=== PATIENT | female | born 1950 | race American Indian/Alaskan Native ===

== ENCOUNTER 2016-08-14 15:34 | Emergency (ER) | payer MEDICARE ==
[2016-08-14 15:34] VITALS: BMI 31.1
[2016-08-14 15:41] VITALS: TEMP 98.4
[2016-08-14] MEDS ORDERED: Morphine 4 MG/ML VIAL ONE (16:16)
--- NOTE | 2016-08-14 17:08 | RAD ---
PROCEDURE: Radiographs of the left clavicle. HISTORY: left clavicle pain r/o fx COMPARISON: None. FINDINGS: LEFT CLAVICLE: Acute fracture at the junction of the middle and distal thirds. The fracture is without appreciable distraction or impaction. This appears in a row area of mottling of the clavicle suggests the possibility of a pathologic fracture. JOINTS: Left acromioclavicular and glenohumeral joints are grossly unremarkable. SOFT TISSUES: Grossly unremarkable. OTHER FINDINGS: None. IMPRESSION: Acute fracture left clavicle. This appears to be a pathologic fracture.
--- NOTE | 2016-08-14 17:12 | C.PDOC ---
History Of Present Illness 66-year-old female with PMHx of Hypertension and Multiple Myeloma, presents to the emergency department with for evaluation of left shoulder/clavicular pain, severe since last night. Patient states she fell two weeks ago, and developed pain in the area. Today she went for chemotherapy with Dr Morley, was given Tramadol for pain. She denies new falls/injuries, chest pain, SOB, fever , nausea/vomiting, sensory changes, rash. Time Seen by Provider: 08/14/16 15:57 Chief Complaint (Nursing): Upper Extremity Problem/Injury History Per: Patient History/Exam Limitations: no limitations Onset/Duration Of Symptoms: Days Current Symptoms Are (Timing): Still Present Quality: "Pain" Severity: Moderate Past Medical History Reviewed: Historical Data, Nursing Documentation, Vital Signs Vital Signs: Last Vital Signs Temp 98.4 F 08/14/16 15:40 Pulse 80 08/14/16 17:26 Resp 18 08/14/16 17:26 BP 164/97 H 08/14/16 17:26 Pulse Ox 98 08/14/16 19:04 - Medical History PMH: Bronchitis, HTN, Malignancy (multiple myeloma) - [facility] Procedures BREAST DX PROCEDURE NEC (08/19/13) DX ULTRASOUND-THORAX NEC (08/19/13) NON-INVASIVE MECHANICAL VENTILATION (10/05/14) PERCUTAN NEEDLE BIOPSY OF BREAST (08/19/13) Family History: States: No Known Family Hx - Social History Hx Tobacco Use: No Hx Alcohol Use: No Hx Substance Use: No - Immunization History Hx Tetanus Toxoid Vaccination: No Hx Influenza Vaccination: No Hx Pneumococcal Vaccination: No Review Of Systems Except As Marked, All Systems Reviewed And Found Negative. Constitutional: Negative for: Fever, Chills Cardiovascular: Negative for: Chest Pain, Palpitations Respiratory: Negative for: Cough, Shortness of Breath Gastrointestinal: Negative for: Nausea, Vomiting, Abdominal Pain, Diarrhea Musculoskeletal: Positive for: Other (Left clavicular pain). Negative for: Back Pain Neurological: Negative for: Weakness, Numbness, Headache, Dizziness Physical Exam - Physical Exam Appears: Non-toxic, Other (in moderate pain) Skin: Warm, Dry, No Rash Head: Atraumatic, Normacephalic Eye(s): bilateral: Normal Inspection Oral Mucosa: Moist Neck: Normal, Normal ROM Cardiovascular: Rhythm Regular Respiratory: Normal Breath Sounds, No Accessory Muscle Use, No Rales, No Rhonchi , No Wheezing Extremity: Capillary Refill (< 2 sec all digits ), No Deformity, Other (severe left clavicular TTP and mild swelling noted, no crepitus, left shoulder without swelling or deformity) Extremity: Left: Limited ROM To Joint (left shoulder ROM limited due to pain) Pulses: Left Radial: Normal, Right Radial: Normal Neurological/Psych: Oriented x3, Normal Motor, Normal Sensation Gait: Steady ED Course And Treatment O2 Sat by Pulse Oximetry: 98 (RA) Pulse Ox Interpretation: Normal - Other Rad XR L CLAVICLE X-Ray: Viewed By Me, Read By Radiologist Interpretation: Accession No. : [id number]. Patient Name / ID : NIKOLAS Ramirez / [id number]. Exam Date : 08/14/2016 16:12:38 ( Approved ). Study Comment : Sex / Age : F / 66Y. Creator : Kaden Jarvis MD. Dictator : Kaden Jarvis MD. Envelope Stuffer : Club Car Attendant : Kaden Jarvis MD. Approver2 : Report Date : 08/14/2016 17:06:43. My Comment : . PROCEDURE: Radiographs of the left clavicle. HISTORY: left clavicle pain r/o fx. COMPARISON: None. FINDINGS: LEFT CLAVICLE: Acute fracture at the junction of the middle and distal thirds. The fracture is without appreciable distraction or impaction. This appears in a row area of mottling of the clavicle suggests the possibility of a pathologic fracture. JOINTS: Left acromioclavicular and glenohumeral joints are grossly unremarkable. SOFT TISSUES: Grossly unremarkable. OTHER FINDINGS: None. IMPRESSION: Acute fracture left clavicle. This appears to be a pathologic fracture. XR L SHOULDER X-Ray: Viewed By Me, Read By Radiologist Interpretation: Accession No. : [id number]. Patient Name / ID : NIKOLAS Ramirez / [id number]. Exam Date : 08/14/2016 16:12:55 ( Approved ). Study Comment : Sex / Age : F / 66Y. Creator : Marnie Jesus MD. Dictator : Marnie Jesus MD. Envelope Stuffer : Club Car Attendant : Marnie Jesus MD. Approver2 : Report Date : 08/14/2016 17:18:04. My Comment : . PROCEDURE: Radiographs of the Left Shoulder. HISTORY: left shoulder pain r/o fx. COMPARISON: Left clavicle radiograph performed 08/14/16. FINDINGS : BONES: No acute displaced fracture. Left mid clavicle fracture deformity in a region of mottle lucency. The underlying ribs appear intact. JOINTS: No acute dislocation. SOFT TISSUES: Soft tissues appear unremarkable. No evidence of radiopaque foreign body. IMPRESSION: Left clavicle fracture. Question possibility of pathologic fracture. Please refer to left clavicular radiographs performed concurrently for more detailed discussion. Progress Note: Xrays ordered and reviewed. Patient given Morphine IM. Reevaluation Time: 17:20 Reassessment Condition: Improved (Patient still having pain, PO Vicodin ordered. Xrays shows left calvicular nondisplaced fx (likely pathological). Patient placed in shoulder sling, and given Rx for pain medication. She was instructed to follow up with orthopedics within 1 week, and she understands she should return to ED if symptoms worsen.) Disposition Counseled Patient/Family Regarding: Studies Performed, Diagnosis, Need For Followup, Rx Given - Disposition Referrals: Ced Doshi MD [Staff Provider] - [facility] [Outside] Disposition: HOME/ ROUTINE Disposition Time: 17:25 Condition: STABLE Additional Instructions: FOLLOW UP WITH ORTHOPEDICS WITHIN 1 WEEK USE PAIN MEDICATION NEEDED RETURN TO ER IF SYMPTOMS WORSEN Prescriptions: Hydrocodone/Acetaminophen [Hydrocodon-Acetaminophen 5-325] 1 each PO Q6 PRN #15 tablet PRN Reason: Pain, Moderate (4-7) Instructions: Clavicle Fracture (ED) Print Language: SAO TOMEAN - POA Present On Arrival: None - Clinical Impression Clinical Impression: Fracture of clavicle - Scribe Statement The provider has reviewed the documentation as recorded by the Scribe Gerard Doshi All medical record entries made by the Aubreyibe were at my direction and personally dictated by me. I have reviewed the chart and agree that the record accurately reflects my personal performance of the history, physical exam, medical decision making, and the department course for this patient. I have also personally directed, reviewed, and agree with the discharge instructions and disposition.
[2016-08-14] MEDS ORDERED: Hydrocodone/Acetaminophen 5 mg /300 mg Tab PO ONE (17:20)
--- NOTE | 2016-08-14 17:20 | RAD ---
PROCEDURE: Radiographs of the Left Shoulder HISTORY: left shoulder pain r/o fx COMPARISON: Left clavicle radiograph performed 08/14/16 FINDINGS: BONES: No acute displaced fracture. Left mid clavicle fracture deformity in a region of mottle lucency. The underlying ribs appear intact. JOINTS: No acute dislocation. SOFT TISSUES: Soft tissues appear unremarkable. No evidence of radiopaque foreign body. IMPRESSION: Left clavicle fracture. Question possibility of pathologic fracture. Please refer to left clavicular radiographs performed concurrently for more detailed discussion.
[2016-08-14] MEDS ORDERED: Hydrocodone/Acetaminophen 5 mg /300 mg Tab PO STA (17:25)
[2016-08-14 17:27] VITALS: BP 164/97; PULSE 80; RESP 18
[2016-08-14 19:00] VITALS: O2SAT 98
== END 2016-08-14 17:28 | disposition home or self-care (01) ==
LOC: C.ER 15:34
DX: S42.002A Fracture of unspecified part of left clavicle, initial encounter for closed fracture (principal); W19.XXXA Unspecified fall, initial encounter; Y92.9 Unspecified place or not applicable; C90.00 Multiple myeloma not having achieved remission
CPT/HCPCS: 73000; 73030; 96372; 99284; J2270

== ENCOUNTER 2017-08-11 10:48 | Emergency (ER) | payer MEDICARE, OTHER ==
[2017-08-11 10:48] VITALS: BMI 31.1
[2017-08-11 10:54] VITALS: RESP 16
[2017-08-11] MEDS ORDERED: Lidocaine 5% Patch TD STA (11:51)
[2017-08-11] MEDS ORDERED: Lidocaine 5% Patch TD ONE (12:05)
--- NOTE | 2017-08-11 12:41 | C.PDOC ---
History Of Present Illness 67-year-old female, PMHx includes multiple myeloma (chemo one week ago), presents to the emergency department with complaints of right lower back pain, developed after lifting heavy pans at work. States at 09:30 this morning, while she was working, she developed an immediate sharp, throbbing pain, and was sent home. Patient took Motrin with minimal relief. Patient states she tried to make an appointment with PMD, but was unable to f.u and decided to come to ED due to severity of pain. Denies nausea/vomiting, numbness/weakness, bladder/bowel incontinence, or any other associated symptoms. No other complaints at this time. PMD Katherine Lugo MD. Time Seen by Provider: 08/11/17 11:44 Chief Complaint (Nursing): Back Pain History Per: Patient History/Exam Limitations: no limitations Past Medical History Reviewed: Historical Data, Nursing Documentation, Vital Signs Vital Signs: Last Vital Signs Temp 98.4 F 08/11/17 14:21 Pulse 78 08/11/17 14:21 Resp 16 08/11/17 14:21 BP 152/81 H 08/11/17 14:21 Pulse Ox 98 08/11/17 14:23 - Medical History PMH: Bronchitis, HTN, Malignancy (multiple myeloma) Denies: Chronic Kidney Disease - [facility] Procedures BREAST DX PROCEDURE NEC (08/19/13) DX ULTRASOUND-THORAX NEC (08/19/13) NON-INVASIVE MECHANICAL VENTILATION (10/05/14) PERCUTAN NEEDLE BIOPSY OF BREAST (08/19/13) Family History: States: No Known Family Hx - Social History Hx Tobacco Use: No Hx Alcohol Use: No Hx Substance Use: No - Immunization History Hx Tetanus Toxoid Vaccination: No Hx Influenza Vaccination: No Hx Pneumococcal Vaccination: No Review Of Systems Cardiovascular: Negative for: Chest Pain Respiratory: Negative for: Shortness of Breath Genitourinary: Negative for: Dysuria, Incontinence Musculoskeletal: Positive for: Back Pain Skin: Negative for: Rash Neurological: Negative for: Weakness, Numbness, Dizziness Physical Exam - Physical Exam Appears: Non-toxic, No Acute Distress Skin: Normal Color, Warm, Dry, No Rash Head: Atraumatic, Normacephalic Eye(s): bilateral: Normal Inspection, EOMI Nose: Normal Oral Mucosa: Moist Lips: Normal Appearing Neck: Normal ROM Chest: Symmetrical Cardiovascular: Rhythm Regular, No Murmur Respiratory: Normal Breath Sounds, No Accessory Muscle Use Gastrointestinal/Abdominal: Soft, No Tenderness, No Guarding, No Rebound Back: Decreased ROM (due to pain), Paraspinal Tenderness (diffuse lumbar), Other (no swelling or bulging) Extremity: Normal ROM, No Deformity, No Swelling Neurological/Psych: Oriented x3, Normal Speech Gait: Steady ED Course And Treatment O2 Sat by Pulse Oximetry: 98 (RA) Pulse Ox Interpretation: Normal Medical Decision Making Medical Decision Making: Impression: Back pain Plan: * Morphine * Lidoderm * XR Spine Xray shows No acute fractures. Minor degenerative spondylosis as described Patient re-evaluated and reports pain is improving. She asks to contact her PMD [id number] Morley will see patient in her office in 2 days. Patient is ambulatory without discomfort and ready for discharge Disposition Counseled Patient/Family Regarding: Diagnosis, Need For Followup - Disposition Referrals: Lashay Morley MD [Staff Provider] - Disposition: HOME/ ROUTINE Disposition Time: 14:10 Condition: IMPROVED Additional Instructions: Please follow up with your doctor in 1-2 days for further evaluation. Take Tylenol or ibuprofen for pain Follow up with your primary medical doctor or clinic in 2-5 days for further evaluation Return to the emergency department at any time if symptoms persist or worsen. Instructions: Lumbar Muscle Strain (DC) Forms: [facility] (Yakut) - POA Present On Arrival: None - Clinical Impression Clinical Impression: Low back strain - Scribe Statement The provider has reviewed the documentation as recorded by the Scribe (Gerard Doshi) All medical record entries made by the Scribe were at my direction and personally dictated by me. I have reviewed the chart and agree that the record accurately reflects my personal performance of the history, physical exam, medical decision making, and the department course for this patient. I have also personally directed, reviewed, and agree with the discharge instructions and disposition.
--- NOTE | 2017-08-11 13:44 | RAD ---
PROCEDURE: Radiographs of the Lumbar Spine. HISTORY: low back pain s.p heavy lifting COMPARISON: No prior. FINDINGS: BONES: No acute compression fractures no retropulsed fragments the vertebral bodies exhibit normal stature. Bodies facets normally aligned. DISC SPACES: Disc space heights relatively maintained. Small marginal anterior osteophyte formation seen at several levels. Facets appear slightly hypertrophic L5-S1 through the L2-L3 levels somewhat decreasing order of severity OTHER FINDINGS: Note made of small ring-like calcific density within the right parasagittal upper/mid abdomen subjacent to the right L1 transverse process. Focus is of uncertain etiology the could represent a vascular calcification or possibly a renal calcification. IMPRESSION: No acute fractures. Minor degenerative spondylosis as described
[2017-08-11 14:22] VITALS: BP 152/81; PULSE 78; TEMP 98.4
[2017-08-11 14:23] VITALS: O2SAT 98
== END 2017-08-11 14:36 | disposition home or self-care (01) ==
LOC: C.ER 10:48
DX: S39.012A Strain of muscle, fascia and tendon of lower back, initial encounter (principal); X50.0XXA Overexertion from strenuous movement or load, initial encounter; Y92.89 Other specified places as the place of occurrence of the external cause; Y99.8 Other external cause status
CPT/HCPCS: 72100; 96372; 99283; J2270

== ENCOUNTER 2018-07-24 09:50 | Outpatient (CLI) | payer MEDICARE, OTHER | END 2018-07-24 09:51 | disposition home or self-care (01) | LOC: C.RADH 09:50 | DX: C90.00 Multiple myeloma not having achieved remission (principal); S72.012A Unspecified intracapsular fracture of left femur, initial encounter for closed fracture ==

== ENCOUNTER 2018-08-25 13:35 | Inpatient (IN) | payer MEDICARE, OTHER ==
[2018-08-25 13:35] VITALS: BMI 31.1
--- NOTE | 2018-08-25 14:26 | C.PDOC ---
History Of Present Illness 68 year old female with PMHx of Multiple Myeloma presents to the ED for evaluation of lesion to the right forearm ongoing for 2 weeks with associated swelling and erythema. Reports she was seen by Oncologist today and was sent to the ED for further evaluation. Denies any fever or chills. Time Seen by Provider: 08/25/18 14:10 Chief Complaint (Nursing): Abnormal Skin Integrity History Per: Patient History/Exam Limitations: no limitations Onset/Duration Of Symptoms: Days Current Symptoms Are (Timing): Still Present Location Of Injury: Right: Forearm (lesion ) Quality Of Symptoms: Swollen, Other (erythema ) Past Medical History Reviewed: Historical Data, Nursing Documentation, Vital Signs Vital Signs: Last Vital Signs Temp 99.6 F 08/25/18 13:55 Pulse 85 08/25/18 13:55 Resp 20 08/25/18 13:55 BP 153/86 H 08/25/18 13:55 Pulse Ox 96 08/25/18 13:55 Primary Care Provider: Nora Kaplan - Medical History PMH: Bronchitis, HTN, Malignancy (multiple myeloma) Denies: Chronic Kidney Disease Other Surgeries: Hysterectomy - [facility] Procedures BREAST DX PROCEDURE NEC (08/19/13) DX ULTRASOUND-THORAX NEC (08/19/13) NON-INVASIVE MECHANICAL VENTILATION (10/05/14) PERCUTAN NEEDLE BIOPSY OF BREAST (08/19/13) Family History: States: No Known Family Hx - Social History Hx Tobacco Use: No Hx Alcohol Use: No Hx Substance Use: No - Immunization History Hx Tetanus Toxoid Vaccination: No Hx Influenza Vaccination: No Hx Pneumococcal Vaccination: No Review Of Systems Except As Marked, All Systems Reviewed And Found Negative. Constitutional: Negative for: Fever, Chills Skin: Positive for: Lesions (right forearm ) Physical Exam - Physical Exam Appears: Non-toxic, No Acute Distress Skin: Warm, Dry, Other (3cm tender mass lesion to right forearm with necrotic center and surrounding cellulitis ulcer ) Head: Normacephalic Eye(s): bilateral: Normal Inspection, PERRL, EOMI Nose: Normal Oral Mucosa: Moist Neck: Supple Cardiovascular: Rhythm Regular Respiratory: Normal Breath Sounds, No Rales, No Rhonchi, No Wheezing Gastrointestinal/Abdominal: Soft, No Tenderness Extremity: Normal ROM Pulses: Left Radial: Normal, Right Radial: Normal Neurological/Psych: Oriented x3, Normal Speech Gait: Steady ED Course And Treatment - Laboratory Results Result Diagrams: 08/25/18 15:12 08/25/18 15:12 O2 Sat by Pulse Oximetry: 96 (RA) Pulse Ox Interpretation: Normal - Other Rad XR right forearm X-Ray: Viewed By Me, Read By Radiologist Interpretation: Accession No. : [id number]. Patient Name / ID : NIKOLAS FERRER / [id number]. Exam Date : 08/25/2018 14:33:08 ( Approved ). Study Comment : Sex / Age : F / 68Y. Creator : Leila Cardenas. Dictator : Leila Cardenas. Compressor House Operator : Shot Polisher And Inspector : Leila Cardenas. Approver2 : Report Date : 08/25/2018 15:45:39. My Comment : . PROCEDURE: Radiographs of the Right Forearm. HISTORY: right forearm ulcer. COMPARISON: None available. TECHNIQUE: Frontal and lateral views obtained. 2 views obtained. FINDINGS: BONES: No fracture or destructive lesion. No periosteal reaction seen. No cortical destruction noted. JOINT SPACES: Unremarkable. OTHER FINDINGS: Extensive reticulated subcutaneous edema dorsal aspect of distal right forearm. In addition superficial hyperdensity and soft tissue like concavity radiolucency compatible with the clinical history of an also here at least 1.6 mm in length is noted. No gas-forming cellulitis seen. IMPRESSION: Soft tissue reticulated edema compatible with lymphedema/possible venous stasis and/or cellulitis. With the superficial ulcer as above. No deeper radiographic evidence of osteomyelitis. No gas-forming cellulitis noted. - CT Scan/US CT RUE Other Rad Studies (CT/US): Read By Radiologist, Radiology Report Reviewed CT/US Interpretation: Accession No. : [id number]. Patient Name / ID : NIKOLAS Ramirez / [id number]. Exam Date : 08/25/2018 16:22:37 ( Approved ). Study Comment : Sex / Age : F / 68Y. Creator : Arlin Herrmann. Dictator : Marnie Jesus MD. Compressor House Operator : Shot Polisher And Inspector : Marnie Jesus MD. Approver2 : Report Date : 08/25/2018 16:38:25. My Comment : . Date of service: 08/25/2018. Indication: right forearm necrotic mass. Right upper extremity/elbow CT with IV contrast. IV contrast: 100 mL Visipaque 320 IV. Radiation dose: 216.[address] exam was performed using 1 or more of the following dose reduction techniques: Automated exposure control, adjustment of the MAA and/or kV according to patient size, and/or use of iterative reconstruction technique. Comparison: Right forearm radiographs performed 08/25/18. Findings: Extensive subcutaneous edema/cellulitis. There is a 1.9 x 2.4 cm focal collection with peripheral enhancement noted within the superficial soft tissues at the level of the distal humerus posterior soft tissues; appearance favored to represent abscess. No acute fracture. No dislocation. No evidence of retained radiopaque foreign body. Impression: Extensive subcutaneous edema/cellulitis. There is a 1.9 x 2.4 cm focal collection with peripheral enhancement noted within the superficial soft tissues at the level of the distal humerus posterior soft tissues; appearance favored to represent abscess. Osseous demineralization. No acute fracture or dislocation. Medical Decision Making Medical Decision Making: ro abcses scellulitis. Plan - CT RUE - Bloodwork - XR RUE - Sosyn IVPB - Vancomycin IVPB case discussed with dr cowart . will admit. ct pending. Disposition - Disposition Disposition: HOSPITALIZED Disposition Time: 18:00 Condition: STABLE - Clinical Impression Clinical Impression: Cellulitis, Abscess - PA / RAILROAD SWITCHMAN / Resident Statement MD/DO has reviewed & agrees with the documentation as recorded. - Scribe Statement The provider has reviewed the documentation as recorded by the Scribe Pastora Dumas All medical record entries made by the Scribe were at my direction and personally dictated by me. I have reviewed the chart and agree that the record accurately reflects my personal performance of the history, physical exam, medical decision making, and the department course for this patient. I have also personally directed, reviewed, and agree with the discharge instructions and disposition. Decision To Admit - Pt Status Changed To: Hospital Disposition Of: Inpatient - Admit Certification Admit to Inpatient:: After my assessment, the patient will require hospitalization for at least two midnights. This is because of the severity of symptoms shown, intensity of services needed, and/or the medical risk in this patient being treated as an outpatient. - InPatient: Physician Admission Certification: I certify that this patient requires 2 or more midnights of care for the following reason:: needs OR - . Bed Request Type: Regular Admitting Physician: Nora Kaplan Patient Diagnosis: Cellulitis, Abscess
[2018-08-25] MEDS ORDERED: Piperacillin/Tazobact 3.375 gm 100 ML IVPB STA (14:30)
[2018-08-25] MEDS ORDERED: Vancomycin 1 GM 1 GM/250 ML BAG IVPB ONE (15:16)
[2018-08-25] MEDS ORDERED: Piperacillin/Tazobact 3.375 gm 100 ML IVPB ONE (15:16)
[2018-08-25 15:23] LABS: BASO % 0.6 % (0.0-2.0); EOS % 0.9 % (0.0-4.0); HEMOGLOBIN 10.5 g/dL (11.0-16.0); LYMPH # 1.4 K/uL (1.0-4.3); LYMPH % 32.3 % (20.0-40.0); MEAN CELL VOLUME 89.2 fL (81.0-99.0); MEAN CORPUSCULAR HEMOGLOBIN 28.3 pg (27.0-31.0); MEAN CORPUSCULAR HGB CONC 31.7 g/dL (33.0-37.0); MEAN PLATELET VOLUME 9.2 fL (7.2-11.7); MONO # 0.4 K/uL (0.0-0.8); MONO % 9.6 % (0.0-10.0); NEUT # 2.4 K/uL (1.8-7.0); NEUT % 56.6 % (50.0-75.0); NRBC % 0.6 % (0.0-2.0); RBC 3.73 Mil/uL (3.80-5.20)
[2018-08-25 15:25] LABS: WHITE BLOOD COUNT 4.3 K/uL (4.8-10.8)
[2018-08-25 15:26] LABS: INR 1.2; PARTIAL THROMBOPLASTIN TIME 33.3 SECONDS (21-34); PROTHROMBIN TIME 13.3 SECONDS (9.7-12.2)
[2018-08-25 15:30] LABS: ALB/GLOB RATIO 1.3 (1.0-2.1); ALBUMIN 3.9 g/dL (3.5-5.0); ALT/SGPT 21 U/L (9-52); AST/SGOT 16 U/L (14-36); BLOOD UREA NITROGEN 13 mg/dL (7-17); CALCIUM 8.5 mg/dl (8.6-10.4); GFR NON-AFRICAN AMERICAN > 60
--- NOTE | 2018-08-25 15:48 | RAD ---
PROCEDURE: Radiographs of the Right Forearm HISTORY: right forearm ulcer COMPARISON: None available. TECHNIQUE: Frontal and lateral views obtained. 2 views obtained. FINDINGS: BONES: No fracture or destructive lesion. No periosteal reaction seen. No cortical destruction noted. JOINT SPACES: Unremarkable. OTHER FINDINGS: Extensive reticulated subcutaneous edema dorsal aspect of distal right forearm. In addition superficial hyperdensity and soft tissue like concavity radiolucency compatible with the clinical history of an also here at least 1.6 mm in length is noted. No gas-forming cellulitis seen. IMPRESSION: Soft tissue reticulated edema compatible with lymphedema/possible venous stasis and/or cellulitis. With the superficial ulcer as above. No deeper radiographic evidence of osteomyelitis. No gas-forming cellulitis noted.
[2018-08-25] MEDS ORDERED: Iodixanol 320 MG/ML 100 ML BOTTLE IV ONE (16:02)
--- NOTE | 2018-08-25 17:45 | CT ---
Date of service: 08/25/2018 Indication: right forearm necrotic mass Right upper extremity/elbow CT with IV contrast IV contrast: 100 mL Visipaque 320 IV Radiation dose: 216.[address] exam was performed using 1 or more of the following dose reduction techniques: Automated exposure control, adjustment of the MAA and/or kV according to patient size, and/or use of iterative reconstruction technique Comparison: Right forearm radiographs performed 08/25/18 Findings: Extensive subcutaneous edema/cellulitis. There is a 1.9 x 2.4 cm focal collection with peripheral enhancement noted within the superficial soft tissues at the level of the distal humerus posterior soft tissues; appearance favored to represent abscess. No acute fracture. No dislocation. No evidence of retained radiopaque foreign body. Impression: Extensive subcutaneous edema/cellulitis. There is a 1.9 x 2.4 cm focal collection with peripheral enhancement noted within the superficial soft tissues at the level of the distal humerus posterior soft tissues; appearance favored to represent abscess. Osseous demineralization. No acute fracture or dislocation.
--- NOTE | 2018-08-25 18:24 | CP.PCM.CON ---
History of Present Illness - History of Present Illness History of Present Illness: General Surgery Consult for Dr. Darden Reason for consult: right forearm abscess and cellulitis 68 F with PMH that includes HTN and multiple myeloma on chemotherapy presents for complaint of right upper extremity pain. Patient was seen and evaluated in the ED. Patient states that she noticed this pain about 2 weeks ago. She states it seemed like something bit her. Over the last 2 weeks, area had become larger in size, raised, and more painful with redness. Patient notes necrotic center. Patient receives chemotherpay for MM 3 weeks on and 1 week off. Patient reports scant purulent drainage. Patient denies fever/chills. Motrin helps with pain. Denies any cp, SOB, abd pain, n/v/d, motor/sensory deficit, numbness/tingling, p ain with ROM. PMH: Bronchitis, HTN, MM PSH: Hysterectomy, breast biopsy ALL: codeine, promethazine Review of Systems - Constitutional Constitutional: Fever. absent: Chills - EENT Eyes: Blurred Vision. absent: Dry Eye, Loss of Peripheral Vision Ears: absent: Decreased Hearing, Abnormal Hearing Nose/Mouth/Throat: absent: Post Nasal Drip, Halitosis, Mouth Pain - Breasts Breasts: absent: Mass, Pain, Skin Changes - Cardiovascular Cardiovascular: absent: Palpitations, Rapid Heart Rate, Syncope - Respiratory Respiratory: absent: Cough, Dyspnea - Gastrointestinal Gastrointestinal: absent: Abdominal Pain, Nausea, Vomiting - Genitourinary Genitourinary: absent: Change in Urinary Stream, Difficulty Urinating, Urinary Frequency - Musculoskeletal Musculoskeletal: absent: Numbness, Tingling - Integumentary Integumentary: Wounds (right forearm) - Neurological Neurological: Vertigo. absent: Numbness, Lack of Coordination, Loss of Vision, Sensory Deficit, Tingling - Psychiatric Psychiatric: absent: Anxiety, Depression - Endocrine Endocrine: absent: Palpitations, Polydipsia, Polyphagia, Polyuria - Hematologic/Lymphatic Hematologic: absent: Easy Bleeding, Easy Bruising, Lymphadenopathy Past Patient History - Past Medical History & Family History Past Medical History?: Yes - Past Social History Smoking Status: Never Smoked - CARDIAC Hx Hypertension: Yes - PULMONARY Hx Bronchitis: Yes - NEUROLOGICAL Hx Neurological Disorder: No - HEENT Hx HEENT Problems: No - RENAL Hx Chronic Kidney Disease: No - ENDOCRINE/METABOLIC Hx Endocrine Disorders: No - HEMATOLOGICAL/ONCOLOGICAL Hx Cancer: Yes Other/Comment: HX.MULTIPLE MYELOMA,BONE MARROW TRANSPLANT - INTEGUMENTARY Hx Dermatological Problems: No - MUSCULOSKELETAL/RHEUMATOLOGICAL Hx Musculoskeletal Disorders: No Hx Falls: No - GASTROINTESTINAL Hx Gastrointestinal Disorders: No - GENITOURINARY/GYNECOLOGICAL Other/Comment: HX.HYSTERECTOMY - PSYCHIATRIC Hx Substance Use: No - SURGICAL HISTORY Hx Hysterectomy: Yes - ANESTHESIA Hx Anesthesia: No Hx Anesthesia Reactions: No Hx Malignant Hyperthermia: No Meds Allergies/Adverse Reactions: Allergies Allergy/AdvReac Type Severity Reaction Status Date / Time codeine Allergy Verified 08/25/18 13:57 promethazine [From Phenergan] Allergy Verified 08/25/18 13:57 Physical Exam - Constitutional Appears: Non-toxic, No Acute Distress - Head Exam Head Exam: ATRAUMATIC, NORMOCEPHALIC - Eye Exam Eye Exam: EOMI, Normal appearance Pupil Exam: PERRL - ENT Exam ENT Exam: Mucous Membranes Moist - Respiratory Exam Respiratory Exam: NORMAL BREATHING PATTERN - Cardiovascular Exam Cardiovascular Exam: REGULAR RHYTHM - GI/Abdominal Exam GI & Abdominal Exam: Normal Bowel Sounds, Soft. absent: Tenderness - Rectal Exam Rectal Exam: Deferred - Extremities Exam Extremities exam: Positive for: normal capillary refill, pedal pulses present. Negative for: calf tenderness Additional comments: RUE: proximal forearm with 2 x 2 cm raised area with warthm, induration, fluctuance, erythema and necrotic center, there is scant purulent drainage from wound; not involving elbow joint, patient has good pulse, no motor/sensory deficit, 5/5 strength, no pain with passive or active movement - Back Exam Back exam: absent: CVA tenderness (L), CVA tenderness (R) - Neurological Exam Neurological exam: Alert, Oriented x3 - Psychiatric Exam Psychiatric exam: Normal Affect, Normal Mood - Skin Skin Exam: Dry, Warm Results - Vital Signs Recent Vital Signs: Last Vital Signs Temp 98.3 F 08/25/18 17:46 Pulse 82 08/25/18 17:46 Resp 18 08/25/18 17:46 BP 145/74 08/25/18 17:46 Pulse Ox 96 08/25/18 18:11 - Labs Result Diagrams: 08/25/18 15:12 08/25/18 15:12 Labs: Laboratory Results - last 24 hr 08/25/18 08/25/18 08/25/18 15:12 15:12 15:12 WBC 4.3 L D RBC 3.73 L Hgb 10.5 L Hct 33.3 L MCV 89.2 MCH 28.3 MCHC 31.7 L RDW 20.0 H Plt Count 130 MPV 9.2 Neut % (Auto) 56.6 Lymph % (Auto) 32.3 [place] % (Auto) 9.6 Eos % (Auto) 0.9 Baso % (Auto) 0.6 Neut # (Auto) 2.4 Lymph # (Auto) 1.4 [place] # (Auto) 0.4 Eos # (Auto) 0.0 Baso # (Auto) 0.0 ESR 100 H PT 13.3 H INR 1.2 APTT 33.3 Sodium 142 Potassium 3.4 L Chloride 108 H Carbon Dioxide 23 Anion Gap 14 BUN 13 Creatinine 0.7 Est GFR ( Amer) > 60 Est GFR (Non-Af Amer) > 60 Random Glucose 100 Calcium 8.5 L Total Bilirubin 0.5 AST 16 ALT 21 Alkaline Phosphatase 94 Total Protein 6.9 Albumin 3.9 Globulin 3.0 Albumin/Globulin Ratio 1.3 Assessment & Plan - Assessment and Plan (Free Text) Assessment: 68 F with PMH htn and Multiple myeloma presents with proximal forearm necrotic wound with abscess and cellulitis Plan: -Regular diet then NPO past MN -IVF -IV abx -Pain control -Plan for I&D and debridement in OR 08/26 -Monitor for spread or worsening symptoms -medical management as per primary -Discussed with Dr. Katalina Dwyer PGY2 - Date & Time Date: 08/25/18 Time: 19:00
[2018-08-25] MEDS: Lactated Ringer's 1,000 ML IV SCH (20:54)
[2018-08-25] MEDS: Piperacill/Tazo 3.375gm in Dex 3.375 GM/50 ML BAG IVPB SCH (21:11)
--- NOTE | 2018-08-25 23:35 | CP.PCM.HP ---
History of Present Illness - History of Present Illness History of Present Illness: Chief complaint: Right arm pain and swelling HPI: 68-year-old female with history of hypertension, multiple myeloma on chemotherapy. Patient started noticing small pimple-like skin lesion over the right arm 3 weeks ago, slowly the pimple got bigger. She was using the alcohol to clean. It become more red. One day she was applying some gauze piece, and she saw some puslike secretions and foul-smelling. At that time oncologist started p.o. antibiotic 5 days ago. But as the swelling got worse, and also pain associated with a and worsening, continuous discharge patient came to the emergency room. Patient did not have any loss of appetite, loss of weight, no fever or chills noted. No axillary swelling or pain noted. No other area of the skin involved. Past medical history: Multiple myeloma. History of hypertension. She denies any diabetes Surgical history: Hysterectomy. Patient had a history of stem cell transplant in 2001. Currently receiving chemotherapy for multiple myeloma Allergic to codeine and promethazine Personal history: Non-smoker nonalcoholic. Normal functional capacity Family history noncontributory Review of system: Patient denies any headache. No visual symptoms. Denies any chest pain or shortness of breath. No nausea no vomiting no fever no chills noted. Gradually worsening right arm swelling noted On examination: Vital signs are stable. Chest bilateral good air entry No cervical adenitis. No right axillary adenitis noted Regular heart sounds noted. Nontender abdomen. No pedal edema On the right upper extremity, dorsum of the upper one third of the right forearm there is an indurated skin lesions noted, associated with redness. The lesion is about 4 cm in diameter, central dark skin noted. Induration surrounding present. Erythema noted. Tenderness present. Occasionally bloody discharge also noted The borders of the ulcer in the center part slight eventration noted Patient's labs reviewed Nonspecific. Upper extremity CT scan showing evidence of possible focal collection of fluid surrounding extensive subcutaneous cellulitis noted Assessment and recommendation: 68-year-old female with a history of multiple myeloma on chemotherapy. Patient history of stem cell transplant in the past. History of hypertension currently stable. Now admitted with right upper extremity abscess. Failed outpatient treatment. Worsening local infection noted. Associate with a cellulitis. Currently on vancomycin and Zosyn. We will continue the current antibiotic. Surgical evaluation. Oncology as well as infectious disease evaluation. Culture is pending. And will follow the patient. DVT and GI prophylaxis Present on Admission - Present on Admission Any Indicators Present on Admission: No History of DVT/PE: No History of Uncontrolled Diabetes: No Urinary Catheter: No Decubitus Ulcer Present: No Past Patient History - Past Medical History & Family History Past Medical History?: Yes - Past Social History Smoking Status: Never Smoked - CARDIAC Hx Hypertension: Yes - PULMONARY Hx Bronchitis: Yes - NEUROLOGICAL Hx Neurological Disorder: No - HEENT Hx HEENT Problems: No - RENAL Hx Chronic Kidney Disease: No - ENDOCRINE/METABOLIC Hx Endocrine Disorders: No - HEMATOLOGICAL/ONCOLOGICAL Hx Cancer: Yes Other/Comment: HX.MULTIPLE MYELOMA,BONE MARROW TRANSPLANT - INTEGUMENTARY Hx Dermatological Problems: No - MUSCULOSKELETAL/RHEUMATOLOGICAL Hx Musculoskeletal Disorders: No Hx Falls: No - GASTROINTESTINAL Hx Gastrointestinal Disorders: No - GENITOURINARY/GYNECOLOGICAL Other/Comment: HX.HYSTERECTOMY - PSYCHIATRIC Hx Substance Use: No - SURGICAL HISTORY Hx Hysterectomy: Yes - ANESTHESIA Hx Anesthesia: No Hx Anesthesia Reactions: No Hx Malignant Hyperthermia: No Meds Allergies/Adverse Reactions: Allergies Allergy/AdvReac Type Severity Reaction Status Date / Time codeine Allergy Verified 08/25/18 13:57 promethazine [From Phenergan] Allergy Verified 08/25/18 13:57 Results - Vital Signs Recent Vital Signs: Last Vital Signs Temp 98.8 F 08/25/18 22:39 Pulse 80 08/25/18 22:39 Resp 20 08/25/18 22:39 BP 149/82 08/25/18 22:39 Pulse Ox 96 08/25/18 22:39 - Labs Result Diagrams: 08/25/18 15:12 08/25/18 15:12 Labs: Laboratory Results - last 24 hr 08/25/18 08/25/18 08/25/18 15:12 15:12 15:12 WBC 4.3 L D RBC 3.73 L Hgb 10.5 L Hct 33.3 L MCV 89.2 MCH 28.3 MCHC 31.7 L RDW 20.0 H Plt Count 130 MPV 9.2 Neut % (Auto) 56.6 Lymph % (Auto) 32.3 [place] % (Auto) 9.6 Eos % (Auto) 0.9 Baso % (Auto) 0.6 Neut # (Auto) 2.4 Lymph # (Auto) 1.4 [place] # (Auto) 0.4 Eos # (Auto) 0.0 Baso # (Auto) 0.0 ESR 100 H PT 13.3 H INR 1.2 APTT 33.3 Sodium 142 Potassium 3.4 L Chloride 108 H Carbon Dioxide 23 Anion Gap 14 BUN 13 Creatinine 0.7 Est GFR ( Amer) > 60 Est GFR (Non-Af Amer) > 60 Random Glucose 100 Calcium 8.5 L Total Bilirubin 0.5 AST 16 ALT 21 Alkaline Phosphatase 94 Total Protein 6.9 Albumin 3.9 Globulin 3.0 Albumin/Globulin Ratio 1.3
[2018-08-26] MEDS: Vancomycin 1 gm/NS 200 ml 1 GM/200 ML BAG IVPB SCH ×2 (01:44→14:36)
[2018-08-26] MEDS: Piperacill/Tazo 3.375gm in Dex 3.375 GM/50 ML BAG IVPB SCH ×4 (03:43→14:00)
[2018-08-26 07:17] LABS: MEAN CORPUSCULAR HEMOGLOBIN 29.1 pg (27.0-31.0); RED CELL DISTRIBUTION WIDTH 19.6 % (11.5-14.5)
[2018-08-26 07:28] LABS: ALB/GLOB RATIO 1.2 (1.0-2.1); ALBUMIN 3.3 g/dL (3.5-5.0); ALT/SGPT 23 U/L (9-52); AST/SGOT 14 U/L (14-36); BLOOD UREA NITROGEN 9 mg/dL (7-17); CALCIUM 7.9 mg/dl (8.6-10.4); GFR NON-AFRICAN AMERICAN > 60
[2018-08-26 07:34] LABS: INR 1.3; PARTIAL THROMBOPLASTIN TIME 33.4 SECONDS (21-34); PROTHROMBIN TIME 13.9 SECONDS (9.7-12.2)
[2018-08-26 07:52] LABS: MEAN CELL VOLUME 89.8 fL (81.0-99.0); MEAN CORPUSCULAR HGB CONC 32.4 g/dL (33.0-37.0); MEAN PLATELET VOLUME 9.9 fL (7.2-11.7); RBC 3.43 Mil/uL (3.80-5.20)
[2018-08-26 07:53] LABS: EOS % 0.2 % (0.0-4.0); MONO % 14.7 % (0.0-10.0); WHITE BLOOD COUNT 3.8 K/uL (4.8-10.8)
[2018-08-26 07:54] LABS: BASO # 0.1 K/uL (0.0-0.2); BASO % 2.1 % (0.0-2.0); LYMPH # 0.3 K/uL (1.0-4.3); MONO # 0.6 K/uL (0.0-0.8); NEUT # 2.8 K/uL (1.8-7.0); NRBC % 0.4 % (0.0-2.0); PLATELET COUNT 124 K/uL (130-400)
[2018-08-26] MEDS ORDERED: Lidocaine/Epinephrine 1% 1:100000 10 ML IJ ONE (09:52)
[2018-08-26] MEDS ORDERED: Bupivacaine 0.25% 20 ML INJ IJ ONE (09:52)
[2018-08-26] MEDS ORDERED: Potassium Chloride 20 mEq ER Tab PO ONE (10:00)
[2018-08-26] MEDS ORDERED: Midazolam 2 MG/2 ML VIAL ONE (10:01)
[2018-08-26] MEDS ORDERED: Propofol 10 mg/ml Inj (20 ML) ONE (10:02)
[2018-08-26 10:31] LABS: ANISOCYTOSIS MODERATE; BANDS 2 % (0-2); LYMPHOCYTE 9 % (20-40); MONOCYTE 17 % (0-10); NEUTROPHIL 72 % (50-75); PLATELET ESTIMATE SLIGHTLY DECREASED (NORMAL); TOTAL CELLS COUNTED 100
[2018-08-26 10:32] LABS: HYPOCHROMIC SLIGHT; LARGE PLATELETS PRESENT; OVALOCYTES SLIGHT
[2018-08-26] MEDS ORDERED: HYDROmorphone 0.5 mg/0.5 ml ISec IVP PRN (10:37)
--- NOTE | 2018-08-26 10:39 | PCM.SURG1 ---
Surgeon's Initial Post Op Note - Surgeon's Notes Surgeon: Yasir Darden MD Therapeutic Support Staff: Sophia Ivan, PGY-2 Type of Anesthesia: IV Sedation Anesthesia Administered By: Dr. Allen Pre-Operative Diagnosis: Right forearm abscess Operative Findings: necrotic tissue of right lateral forearm & abscess Post-Operative Diagnosis: Right forearm abscess with necrotic tissue Operation Performed: Incision and drainage with debridment of Right lateral forearm abscess Specimen/Specimens Removed: eschar, necrotic tissue Estimated Blood Loss: EBL {In ML}: 10 Blood Products Given: N/A Drains Used: No Drains Post-Op Condition: Good Date of Surgery/Procedure: 08/26/18 Time of Surgery/Procedure: 10:38
[2018-08-26] MEDS: Lactated Ringer's 1,000 ML IV SCH ×2 (16:28→23:58)
--- NOTE | 2018-08-26 19:34 | CP.PCM.CON ---
History of Present Illness - History of Present Illness History of Present Illness: INFECTIOUS DISEASE CONSULTATION ARMEN MITCHELL MD, FACP 08/26/2018 5T 552-A CHART REVIEWED PT EXAMINED CASE DISCUSSED WITH MICHAEL SHAVER AND TYRA STACK THIS PATIENT IS A PLEASANT 68 YEAR OLD AAF ADMITTED WITH A PROGRESSIVE RIGHT FOREARM SWELLING, REDNESS AND PAIN FOR OVER 2 WEEKS. SHE DENIES ANY TRAUMA/ABRASIONS BUT OFFERS THIS IS THE VEIN SHE HAS LEFT FROM FREQUENT IV CHEMIOTX/ETC FOR HER MULTIPLE MYELOMA. SHE DESCRIBES THE AREA ORIGINALLY HARD, RAISED OVER 4CM IN SIZE AND IT IS NOW S/P I&D SINCE THIS MORNING WHEN I WAS CALLED. AN INFECTIOUS DISESAE CONSULTATION IS REQUESTED 2ND TO HER ABSCESS WITH UNDERLYING MULTIPLE MYELOMA/CHEIOTX AND APPARENTLY STEM CELL TRANSPLANTATION IN THE PAST. PMHX: MULITPLE MYELOMA SINCE 1997-S/P STEM CELL TRANSPLANTATION AND CHEMIOTX, NOW RECEIVING WEEKLY NINLARO PO AND K REPLACEMENTS WITH ZOMETA. HTN SHINGLES BRONCHITIS S/P HYSTERECTOMY ALLERGIC TO CODEINE AND PROMETHAZINE. DENIES TOBACCO/ETOH DENIES ANY TEMPS, CHILLS, N,V,D,C, +PAIN AND WARMTH FROM HER RIGHT ARM SITE BEFORE THE SURGERY AND SWELLING OF HER INDEX FINGER. CT+ LOCALIZED ABSCESS THAT WAS D/C'ED THIS AM. VSS: AWAKE AND ALERT TALKATIVE APPROPIATELY SUPPLE NECK CHEST CLEAR COR RR ABD SOFT EXT WRAPPED WITH IV(WILL NEED A CENTRAL LINE) NEURO GROSSLY WNL LABS AND CT DESCRIBED: IMPRESSION FROM THE INFECTIOUS DISEASE POINT OF VIEW: A 68 YEAR OLD FEMALE WITH A NEW ABSCESS LIKE AREA IN/ON HER RIGHT FOREARM-S/P I&D, WITH UNDERLYING MULIPLE MYELOMA AND ALL ITS RAMIFICATIONS. C/S PENDING PREFER TO USE IN THIS IMUNOCOMPROMISED HOST BOTH CUBICIN AND MERREM-ALL PENDING THE FINAL DIAGNOSIS AND C/S. LENGTH OF TREATMENT WILL DEPEND ON FINAL DIAGNOSIS. WATCH FOR REACTIONS WILL REPLACE HER POTASSIUM. Past Patient History - Past Medical History & Family History Past Medical History?: Yes - Past Social History Smoking Status: Never Smoked - CARDIAC Hx Cardiac Disorders: Yes Hx Hypertension: Yes - PULMONARY Hx Respiratory Disorders: Yes Hx Bronchitis: Yes - NEUROLOGICAL Hx Neurological Disorder: No - HEENT Hx HEENT Problems: No - RENAL Hx Chronic Kidney Disease: No - ENDOCRINE/METABOLIC Hx Endocrine Disorders: No - HEMATOLOGICAL/ONCOLOGICAL Hx Blood Disorders: Yes Hx Cancer: Yes Other/Comment: HX.MULTIPLE MYELOMA,BONE MARROW TRANSPLANT - INTEGUMENTARY Hx Dermatological Problems: No - MUSCULOSKELETAL/RHEUMATOLOGICAL Hx Musculoskeletal Disorders: No Hx Falls: No - GASTROINTESTINAL Hx Gastrointestinal Disorders: No - GENITOURINARY/GYNECOLOGICAL Hx Genitourinary Disorders: No Other/Comment: HX.HYSTERECTOMY - PSYCHIATRIC Hx Psychophysiologic Disorder: No Hx Substance Use: No - SURGICAL HISTORY Hx Surgeries: Yes Hx Hysterectomy: Yes - ANESTHESIA Hx Anesthesia: Yes Hx Anesthesia Reactions: No Hx Malignant Hyperthermia: No Meds Allergies/Adverse Reactions: Allergies Allergy/AdvReac Type Severity Reaction Status Date / Time codeine Allergy Verified 08/25/18 13:57 promethazine [From Phenergan] Allergy Verified 08/25/18 13:57 - Medications Medications: Current Medications Acetaminophen (Tylenol 325mg Tab) 650 mg PO Q6 PRN PRN Reason: Pain, Mild (1-3) Last Admin: 08/26/18 16:06 Dose: 650 mg Amlodipine Besylate (Norvasc) 10 mg PO DAILY ELISE Last Admin: 08/26/18 09:32 Dose: 10 mg Lactated Ringer's (Lactated Ringer's) 1,000 mls @ 100 mls/hr IV .Q10H ELISE Last Admin: 08/26/18 16:28 Dose: Not Given Daptomycin 500 mg/ Sodium (Chloride) 100 mls @ 100 mls/hr IV Q24H ELISE; Protocol Stop: 08/31/18 19:31 Meropenem 500 mg/ Sodium (Chloride) 100 mls @ 100 mls/hr IVPB Q8H ELISE; Protocol Ibuprofen (Motrin Tab) 600 mg PO Q8H PRN PRN Reason: Pain, moderate (4-7) Last Admin: 08/26/18 13:19 Dose: 600 mg Ondansetron HCl (Zofran Inj) 4 mg IVP Q6H PRN PRN Reason: Nausea/Vomiting Results - Vital Signs Recent Vital Signs: Last Vital Signs Temp 97.8 F 08/26/18 15:59 Pulse 72 08/26/18 15:59 Resp 20 08/26/18 15:59 BP 115/66 08/26/18 15:59 Pulse Ox 95 08/26/18 15:59 - Labs Result Diagrams: 08/26/18 07:05 08/26/18 07:05 Labs: Laboratory Results - last 24 hr 08/26/18 08/26/18 08/26/18 07:05 07:05 07:05 WBC 3.8 L RBC 3.43 L Hgb 10.0 L Hct 30.7 L MCV 89.8 MCH 29.1 MCHC 32.4 L RDW 19.6 H Plt Count 124 L MPV 9.9 Neut % (Auto) 74.0 Lymph % (Auto) 9.0 L [place] % (Auto) 14.7 H Eos % (Auto) 0.2 Baso % (Auto) 2.1 H Neut # (Auto) 2.8 Lymph # (Auto) 0.3 L [place] # (Auto) 0.6 Eos # (Auto) 0.0 Baso # (Auto) 0.1 Neutrophils % (Manual) 72 Band Neutrophils % 2 Lymphocytes % (Manual) 9 L Monocytes % (Manual) 17 H Platelet Estimate Slightly decreased L Large Platelets Present Hypochromasia (manual) Slight Anisocytosis (manual) Moderate Ovalocytes Slight PT 13.9 H INR 1.3 APTT 33.4 Sodium 140 Potassium 3.1 L Chloride 108 H Carbon Dioxide 24 Anion Gap 11 BUN 9 Creatinine 0.7 Est GFR ( Amer) > 60 Est GFR (Non-Af Amer) > 60 Random Glucose 91 Calcium 7.9 L Phosphorus 3.0 Magnesium 1.8 Total Bilirubin 0.8 AST 14 ALT 23 Alkaline Phosphatase 78 Total Protein 6.0 L Albumin 3.3 L Globulin 2.7 Albumin/Globulin Ratio 1.2 Blood Type Antibody Screen 08/26/18 07:05 WBC RBC Hgb Hct MCV MCH MCHC RDW Plt Count MPV Neut % (Auto) Lymph % (Auto) [place] % (Auto) Eos % (Auto) Baso % (Auto) Neut # (Auto) Lymph # (Auto) [place] # (Auto) Eos # (Auto) Baso # (Auto) Neutrophils % (Manual) Band Neutrophils % Lymphocytes % (Manual) Monocytes % (Manual) Platelet Estimate Large Platelets Hypochromasia (manual) Anisocytosis (manual) Ovalocytes PT INR APTT Sodium Potassium Chloride Carbon Dioxide Anion Gap BUN Creatinine Est GFR ( Amer) Est GFR (Non-Af Amer) Random Glucose Calcium Phosphorus Magnesium Total Bilirubin AST ALT Alkaline Phosphatase Total Protein Albumin Globulin Albumin/Globulin Ratio Blood Type O POSITIVE Antibody Screen Negative
[2018-08-26] MEDS: Meropenem 500 MG in Sodium Chloride 0.9% 100 ML IVPB SCH (19:55)
[2018-08-26] MEDS: DAPTOmycin 500 MG in Sodium Chloride 0.9% 100 ML IV SCH (20:26)
[2018-08-26] MEDS: Potassium Chloride 20 mEq ER Tab PO SCH (20:32)
--- NOTE | 2018-08-26 20:56 | CP.PCM.CON ---
History of Present Illness - History of Present Illness History of Present Illness: 68 yo woman who was first diagnosed with multiple myeloma in 2001, in [place], s/p autologous bone marrow transplant, then placed on PO Revlimid, has been on chemo since. The chemotherapies she has been on, are Velcade, PO Revlimid, Kyprolis, more recently on PO Ninlaro with Revlimid and Decadron, all of which have left her chronically immunosuppressed. She has diffuse bone mets for which she gets iv Zometa every 3 weeks, had recent fracture of the shoulder and pelvis , after a fall, for which she had shoulder and pelvic radiation She has a recent bout with shingles , for which she was given anti viral meds. She was seen in the office yesterday for a rapidly increasing fight forearm lesion with surrounding redness of the skin Past Patient History - Past Medical History & Family History Past Medical History?: Yes - Past Social History Smoking Status: Never Smoked - CARDIAC Hx Cardiac Disorders: Yes Hx Hypertension: Yes - PULMONARY Hx Respiratory Disorders: Yes Hx Bronchitis: Yes - NEUROLOGICAL Hx Neurological Disorder: No - HEENT Hx HEENT Problems: No - RENAL Hx Chronic Kidney Disease: No - ENDOCRINE/METABOLIC Hx Endocrine Disorders: No - HEMATOLOGICAL/ONCOLOGICAL Hx Blood Disorders: Yes Hx Cancer: Yes Other/Comment: HX.MULTIPLE MYELOMA,BONE MARROW TRANSPLANT - INTEGUMENTARY Hx Dermatological Problems: No - MUSCULOSKELETAL/RHEUMATOLOGICAL Hx Musculoskeletal Disorders: No Hx Falls: No - GASTROINTESTINAL Hx Gastrointestinal Disorders: No - GENITOURINARY/GYNECOLOGICAL Hx Genitourinary Disorders: No Other/Comment: HX.HYSTERECTOMY - PSYCHIATRIC Hx Psychophysiologic Disorder: No Hx Substance Use: No - SURGICAL HISTORY Hx Surgeries: Yes Hx Hysterectomy: Yes - ANESTHESIA Hx Anesthesia: Yes Hx Anesthesia Reactions: No Hx Malignant Hyperthermia: No Meds Allergies/Adverse Reactions: Allergies Allergy/AdvReac Type Severity Reaction Status Date / Time codeine Allergy Verified 08/25/18 13:57 promethazine [From Phenergan] Allergy Verified 08/25/18 13:57 - Medications Medications: Current Medications Acetaminophen (Tylenol 325mg Tab) 650 mg PO Q6 PRN PRN Reason: Pain, Mild (1-3) Last Admin: 08/26/18 16:06 Dose: 650 mg Amlodipine Besylate (Norvasc) 10 mg PO DAILY ELISE Last Admin: 08/26/18 09:32 Dose: 10 mg Lactated Ringer's (Lactated Ringer's) 1,000 mls @ 100 mls/hr IV .Q10H ELISE Last Admin: 08/26/18 16:28 Dose: Not Given Daptomycin 500 mg/ Sodium (Chloride) 100 mls @ 100 mls/hr IV Q24H ELISE; Protocol Stop: 08/31/18 19:31 Last Admin: 08/26/18 20:26 Dose: 100 mls/hr Meropenem 500 mg/ Sodium (Chloride) 100 mls @ 100 mls/hr IVPB Q8H ELISE; Protocol Last Admin: 08/26/18 19:55 Dose: 100 mls/hr Ibuprofen (Motrin Tab) 600 mg PO Q8H PRN PRN Reason: Pain, moderate (4-7) Last Admin: 08/26/18 13:19 Dose: 600 mg Ondansetron HCl (Zofran Inj) 4 mg IVP Q6H PRN PRN Reason: Nausea/Vomiting Potassium Chloride (K-Dur 20 Meq Er Tab) 20 meq PO DAILY ELISE Last Admin: 08/26/18 20:32 Dose: 20 meq Results - Vital Signs Recent Vital Signs: Last Vital Signs Temp 97.8 F 08/26/18 15:59 Pulse 72 08/26/18 15:59 Resp 20 08/26/18 15:59 BP 115/66 08/26/18 15:59 Pulse Ox 95 08/26/18 15:59 - Labs Result Diagrams: 08/26/18 07:05 08/26/18 07:05 Labs: Laboratory Results - last 24 hr 08/26/18 08/26/18 08/26/18 07:05 07:05 07:05 WBC 3.8 L RBC 3.43 L Hgb 10.0 L Hct 30.7 L MCV 89.8 MCH 29.1 MCHC 32.4 L RDW 19.6 H Plt Count 124 L MPV 9.9 Neut % (Auto) 74.0 Lymph % (Auto) 9.0 L [place] % (Auto) 14.7 H Eos % (Auto) 0.2 Baso % (Auto) 2.1 H Neut # (Auto) 2.8 Lymph # (Auto) 0.3 L [place] # (Auto) 0.6 Eos # (Auto) 0.0 Baso # (Auto) 0.1 Neutrophils % (Manual) 72 Band Neutrophils % 2 Lymphocytes % (Manual) 9 L Monocytes % (Manual) 17 H Platelet Estimate Slightly decreased L Large Platelets Present Hypochromasia (manual) Slight Anisocytosis (manual) Moderate Ovalocytes Slight PT 13.9 H INR 1.3 APTT 33.4 Sodium 140 Potassium 3.1 L Chloride 108 H Carbon Dioxide 24 Anion Gap 11 BUN 9 Creatinine 0.7 Est GFR ( Amer) > 60 Est GFR (Non-Af Amer) > 60 Random Glucose 91 Calcium 7.9 L Phosphorus 3.0 Magnesium 1.8 Total Bilirubin 0.8 AST 14 ALT 23 Alkaline Phosphatase 78 Total Protein 6.0 L Albumin 3.3 L Globulin 2.7 Albumin/Globulin Ratio 1.2 Blood Type Antibody Screen 08/26/18 07:05 WBC RBC Hgb Hct MCV MCH MCHC RDW Plt Count MPV Neut % (Auto) Lymph % (Auto) [place] % (Auto) Eos % (Auto) Baso % (Auto) Neut # (Auto) Lymph # (Auto) [place] # (Auto) Eos # (Auto) Baso # (Auto) Neutrophils % (Manual) Band Neutrophils % Lymphocytes % (Manual) Monocytes % (Manual) Platelet Estimate Large Platelets Hypochromasia (manual) Anisocytosis (manual) Ovalocytes PT INR APTT Sodium Potassium Chloride Carbon Dioxide Anion Gap BUN Creatinine Est GFR ( Amer) Est GFR (Non-Af Amer) Random Glucose Calcium Phosphorus Magnesium Total Bilirubin AST ALT Alkaline Phosphatase Total Protein Albumin Globulin Albumin/Globulin Ratio Blood Type O POSITIVE Antibody Screen Negative
--- NOTE | 2018-08-26 21:00 | CP.PCM.PN ---
Subjective - Date & Time of Evaluation Date of Evaluation: 08/26/18 Time of Evaluation: 20:59 - Subjective Subjective: Patient today underwent incision and drainage and wound debridement of the right arm ulcer. Postoperatively patient did well. Seen by infectious disease, currently on Cubicin and meropenem. Tolerating the antibiotic. Complaining of pain in the right upper extremity. Some swelling in the fingers noted. No chest pain shortness of breath. Denies any fever On examination: Vital signs are stable. Chest bilateral good air entry regular sounds noted. Nontender abdomen. No pedal edema. Right upper hand some swelling in the index and middle finger noted on the right side. Patient is able to move and the pulses are palpable Assessment and recommendation: 68-year-old female with history of hypertension, history of multiple myeloma, h istory of stem cell transplant in the past now admitted with the right upper extremity abscess. The pathology is currently pending. We will continue the antibiotic close monitoring labs and will follow up the patient. Objective - Vital Signs/Intake and Output Vital Signs (last 24 hours): Temp Pulse Resp BP Pulse Ox 97.8 F 72 20 115/66 95 08/26/18 15:59 08/26/18 15:59 08/26/18 15:59 08/26/18 15:59 08/26/18 15:59 Intake and Output: 08/26/18 08/27/18 18:59 06:59 Intake Total 750 Balance 750 - Medications Medications: Current Medications Acetaminophen (Tylenol 325mg Tab) 650 mg PO Q6 PRN PRN Reason: Pain, Mild (1-3) Last Admin: 08/26/18 16:06 Dose: 650 mg Amlodipine Besylate (Norvasc) 10 mg PO DAILY [facility] Last Admin: 08/26/18 09:32 Dose: 10 mg Lactated Ringer's (Lactated Ringer's) 1,000 mls @ 100 mls/hr IV .Q10H [facility] Last Admin: 08/26/18 16:28 Dose: Not Given Daptomycin 500 mg/ Sodium (Chloride) 100 mls @ 100 mls/hr IV Q24H [facility]; Protocol Stop: 08/31/18 19:31 Last Admin: 08/26/18 20:26 Dose: 100 mls/hr Meropenem 500 mg/ Sodium (Chloride) 100 mls @ 100 mls/hr IVPB Q8H [facility]; Protocol Last Admin: 08/26/18 19:55 Dose: 100 mls/hr Ibuprofen (Motrin Tab) 600 mg PO Q8H PRN PRN Reason: Pain, moderate (4-7) Last Admin: 08/26/18 13:19 Dose: 600 mg Ondansetron HCl (Zofran Inj) 4 mg IVP Q6H PRN PRN Reason: Nausea/Vomiting Potassium Chloride (K-Dur 20 Meq Er Tab) 20 meq PO DAILY [facility] Last Admin: 08/26/18 20:32 Dose: 20 meq - Labs Labs: 08/26/18 07:05 08/26/18 07:05 PT 13.9 SECONDS (9.7-12.2) H 08/26/18 07:05 INR 1.3 08/26/18 07:05 APTT 33.4 SECONDS (21-34) 08/26/18 07:05
--- NOTE | 2018-08-26 21:37 | OP ---
PROCEDURE DATE: 08/26/2018 PREOPERATIVE DIAGNOSES: 1. Right forearm necrotic wound with underlying abscess. 2. Right forearm cellulitis. POSTOPERATIVE DIAGNOSES: 1. Right forearm necrotic wound with underlying abscess. 2. Right forearm cellulitis. PROCEDURES DONE: 1. Incision and drainage of right forearm abscess. 2. Excision of necrotic eschar and skin of right forearm. 3. Debridement of the right forearm abscess cavity and wound approximately 3 x 4 cm in size. SURGEON: Yasir Darden MD TYPE OF ANESTHESIA: Local anesthesia plus sedation. ESTIMATED BLOOD LOSS: Around 10 mL. DRAINS: None. PATHOLOGY: The necrotic eschar and skin as well as debrided tissue was sent to the table for the pathology and pus was sent for the culture and sensitivity. INTRAOPERATIVE FINDINGS: The patient had approximately 4 x 3 cm necrotic eschar as well as infected skin and abscess cavity with necrotic wound underlying. DESCRIPTION OF PROCEDURE: On intraoperative steps, this 68-year-old female was diagnosed with right forearm necrotic wound with abscess, with cellulitis and the patient was consented for the incision and drainage and debridement. The patient was brought to the OR, placed supine on operating table. After induction of sedation, the right forearm was prepped and draped in usual sterile fashion. The local anesthesia was injected and circular incision was made to cut the necrotic skin and eschar and the abscess cavity was entered and pus was drained and the patient also had infected surrounding skin that was also excised and subcutaneous tissue was also excised and underlying wound was debrided and after proper debridement, the hemostasis was achieved, the wound was irrigated, and the wound was packed with wet-to-dry dressing and dry sterile dressing was applied. The patient tolerated the procedure well. Count of instrument and gauze was correct. There was no apparent complication. Yasir Darden MD
[2018-08-27] MEDS: Lactated Ringer's 1,000 ML IV SCH (03:00)
[2018-08-27] MEDS: Meropenem 500 MG in Sodium Chloride 0.9% 100 ML IVPB SCH ×3 (03:56→18:38)
--- NOTE | 2018-08-27 07:07 | CP.PCM.PN ---
Subjective - Date & Time of Evaluation Date of Evaluation: 08/27/18 Time of Evaluation: 07:04 - Subjective Subjective: General surgery progress note for Dr. Alexandr Ivan, PGY-2 Pt seen/examined at bedside. Pt reports pain well controlled overnight, notes some swelling of 1st digit of right hand. Denies F & C, N & V, BM. Voiding. Tolerating diet. Objective - Vital Signs/Intake and Output Vital Signs (last 24 hours): Temp Pulse Resp BP Pulse Ox 98.3 F 71 20 125/69 97 08/26/18 23:05 08/26/18 23:05 08/26/18 23:05 08/26/18 23:05 08/26/18 23:05 Intake and Output: 08/27/18 08/27/18 06:59 18:59 Intake Total 1000 Balance 1000 - Medications Medications: Current Medications Acetaminophen (Tylenol 325mg Tab) 650 mg PO Q6 PRN PRN Reason: Pain, Mild (1-3) Last Admin: 08/26/18 16:06 Dose: 650 mg Amlodipine Besylate (Norvasc) 10 mg PO DAILY [facility] Last Admin: 08/26/18 09:32 Dose: 10 mg Lactated Ringer's (Lactated Ringer's) 1,000 mls @ 100 mls/hr IV .Q10H [facility] Last Admin: 08/27/18 03:00 Dose: 100 mls/hr Daptomycin 500 mg/ Sodium (Chloride) 100 mls @ 100 mls/hr IV Q24H [facility]; Protocol Stop: 08/31/18 19:31 Last Admin: 08/26/18 20:26 Dose: 100 mls/hr Meropenem 500 mg/ Sodium (Chloride) 100 mls @ 100 mls/hr IVPB Q8H [facility]; Protocol Last Admin: 08/27/18 03:56 Dose: 100 mls/hr Ibuprofen (Motrin Tab) 600 mg PO Q8H PRN PRN Reason: Pain, moderate (4-7) Last Admin: 08/26/18 21:38 Dose: 600 mg Ondansetron HCl (Zofran Inj) 4 mg IVP Q6H PRN PRN Reason: Nausea/Vomiting Potassium Chloride (K-Dur 20 Meq Er Tab) 20 meq PO DAILY [facility] Last Admin: 08/26/18 20:32 Dose: 20 meq - Labs Labs: 08/26/18 07:05 08/26/18 07:05 PT 13.9 SECONDS (9.7-12.2) H 08/26/18 07:05 INR 1.3 08/26/18 07:05 APTT 33.4 SECONDS (21-34) 08/26/18 07:05 - Constitutional Appears: Non-toxic, No Acute Distress - Head Exam Head Exam: ATRAUMATIC, NORMAL INSPECTION, NORMOCEPHALIC - Eye Exam Eye Exam: EOMI, Normal appearance - ENT Exam ENT Exam: Mucous Membranes Moist, Normal Exam - Neck Exam Neck Exam: Full ROM, Normal Inspection - Respiratory Exam Respiratory Exam: NORMAL BREATHING PATTERN - Cardiovascular Exam Cardiovascular Exam: REGULAR RHYTHM, +S1, +S2 - GI/Abdominal Exam GI & Abdominal Exam: Soft. absent: Tenderness - Extremities Exam Additional comments: Right forearm dressing in place- clean/dry/intact. 1st digit of right hand with swelling compared to other digits, non tender. Palpable radial pulse. - Neurological Exam Neurological Exam: Alert, Awake, CN II-XII Intact, Oriented x3 - Psychiatric Exam Psychiatric exam: Normal Affect, Normal Mood - Skin Skin Exam: Dry, Normal Color, Warm Assessment and Plan - Assessment and Plan (Free Text) Assessment: 68F POD#1 s/p Incision and drainage with debridment of Right lateral forearm abscess Plan: Plan for wound vac application Continue Abx Continue pain control Ambulate OOBTC Elevate right forearm and hand Further care as per primary team DW Dr. Katalina Ivan, PGY-2
[2018-08-27 07:24] LABS: HEMOGLOBIN 10.2 g/dL (11.0-16.0); MEAN CELL VOLUME 88.9 fL (81.0-99.0); MEAN CORPUSCULAR HEMOGLOBIN 29.3 pg (27.0-31.0); MEAN CORPUSCULAR HGB CONC 32.9 g/dL (33.0-37.0); MEAN PLATELET VOLUME 9.6 fL (7.2-11.7); RBC 3.48 Mil/uL (3.80-5.20); RED CELL DISTRIBUTION WIDTH 20.1 % (11.5-14.5)
[2018-08-27 07:32] LABS: WHITE BLOOD COUNT 2.9 K/uL (4.8-10.8)
[2018-08-27 08:08] LABS: ALB/GLOB RATIO 1.2 (1.0-2.1); ALBUMIN 3.5 g/dL (3.5-5.0); ALT/SGPT 21 U/L (9-52); AST/SGOT 19 U/L (14-36); BLOOD UREA NITROGEN 8 mg/dL (7-17); CALCIUM 8.3 mg/dl (8.6-10.4); GFR NON-AFRICAN AMERICAN > 60
[2018-08-27 08:39] LABS: LYMPH # 0.5 K/uL (1.0-4.3); MONO # 0.5 K/uL (0.0-0.8); NEUT # 1.9 K/uL (1.8-7.0)
--- NOTE | 2018-08-27 09:17 | CP.PCM.PN ---
Subjective - Date & Time of Evaluation Date of Evaluation: 08/27/18 Time of Evaluation: 09:12 - Subjective Subjective: patient this morning is comfortable. She is complaining of pain over the right upper extremity. Some swelling in the right upper arm and also noted. No chest pain no shortness of breath. On examination: Vital signs stable. Chest good air entry bilaterally regular [place] nontender abdomen no pedal edema I reviewed the patient's labs. Mildly low potassium and low phosphorus noted Assessment and recommendation: 68-year-old female with a history of multiple myeloma. History of stem cell transplantation in the past. Admitted now with right upper extremity abscess and cellulitis. Culture is showing evidence of gram-positive. Awaiting for the ID and the antibiogram. On high-dose of antibiotic now will monitor closely Objective - Vital Signs/Intake and Output Vital Signs (last 24 hours): Temp Pulse Resp BP Pulse Ox 98.4 F 74 20 143/79 97 08/27/18 07:00 08/27/18 07:00 08/27/18 07:00 08/27/18 07:00 08/27/18 07:00 Intake and Output: 08/27/18 08/27/18 06:59 18:59 Intake Total 1000 Balance 1000 - Medications Medications: Current Medications Acetaminophen (Tylenol 325mg Tab) 650 mg PO Q6 PRN PRN Reason: Pain, Mild (1-3) Last Admin: 08/26/18 16:06 Dose: 650 mg Amlodipine Besylate (Norvasc) 10 mg PO DAILY [facility] Last Admin: 08/26/18 09:32 Dose: 10 mg Lactated Ringer's (Lactated Ringer's) 1,000 mls @ 100 mls/hr IV .Q10H [facility] Last Admin: 08/27/18 03:00 Dose: 100 mls/hr Daptomycin 500 mg/ Sodium (Chloride) 100 mls @ 100 mls/hr IV Q24H [facility]; Protocol Stop: 08/31/18 19:31 Last Admin: 08/26/18 20:26 Dose: 100 mls/hr Meropenem 500 mg/ Sodium (Chloride) 100 mls @ 100 mls/hr IVPB Q8H [facility]; Protocol Last Admin: 08/27/18 03:56 Dose: 100 mls/hr Potassium Phosphate 10 mmole/ (Sodium Chloride) 253.3333 mls @ 63 mls/hr IV ONCE ONE Stop: 08/27/18 13:09 Ibuprofen (Motrin Tab) 600 mg PO Q8H PRN PRN Reason: Pain, moderate (4-7) Last Admin: 08/26/18 21:38 Dose: 600 mg Ondansetron HCl (Zofran Inj) 4 mg IVP Q6H PRN PRN Reason: Nausea/Vomiting Potassium Chloride (K-Dur 20 Meq Er Tab) 20 meq PO DAILY [facility] Last Admin: 08/26/18 20:32 Dose: 20 meq Saliva Substitute (First Magic Mouthwash) 5 ml PO Q8 [facility] - Labs Labs: 08/27/18 07:01 08/27/18 07:01 PT 13.9 SECONDS (9.7-12.2) H 08/26/18 07:05 INR 1.3 08/26/18 07:05 APTT 33.4 SECONDS (21-34) 08/26/18 07:05
[2018-08-27] MEDS ORDERED: POTASSIUM PHOSPHATE IV ONE (10:00)
[2018-08-27] MEDS ORDERED: SODIUM CHLORIDE IV ONE (10:00)
[2018-08-27] MEDS: Mag&Al/Simet/Diphen/Lido 237 ML KIT PO SCH ×3 (10:15→21:21)
[2018-08-27] MEDS: Potassium Chloride 20 mEq ER Tab PO SCH (10:17)
[2018-08-27] MEDS: DAPTOmycin 500 MG in Sodium Chloride 0.9% 100 ML IV SCH (19:41)
--- NOTE | 2018-08-27 19:50 | CP.PCM.PN ---
Subjective - Date & Time of Evaluation Date of Evaluation: 08/27/18 Time of Evaluation: 19:45 - Subjective Subjective: INFECTIOUS DISEASE PROGRESS NOTES ARMEN MITCHELL MD, FACP 5T 550 08/27/2018 CHART REVIEWED PT EXAMINED CASE DISCUSSED CLINICALLY STILL WITH POST OP PAIN SOME SWELLING NOTED AFEBRILE DECREASED BREATH SOUNDS BILATERALLY APPEARS TO BE RESPONDING TO MED/SX TREATMENT C/S AND GRAM STAIN ONLY SHOW GRAM POSITIVE COCCI IN CLUSTERS K+ HAS RAISED TO 3.8! OBSERVE ON IV MEDICATIONS CLINICALLY WITHDRAWN A LITTLE OBSERVES CLOSELY, ESPECIALLY SHE IS DEFINITELY IMUNOCOMPROMISED. APPRECIATE EXCELLENT CARE/DOCUMENTATION FROM DR TYRA CHEN. ARMEN MITCHELL MD, FACP Objective - Vital Signs/Intake and Output Vital Signs (last 24 hours): Temp Pulse Resp BP Pulse Ox 98.1 F 70 20 128/77 99 08/27/18 15:00 08/27/18 15:00 08/27/18 15:00 08/27/18 15:00 08/27/18 15:00 - Medications Medications: Current Medications Acetaminophen (Tylenol 325mg Tab) 650 mg PO Q6 PRN PRN Reason: Pain, Mild (1-3) Last Admin: 08/26/18 16:06 Dose: 650 mg Amlodipine Besylate (Norvasc) 10 mg PO DAILY [facility] Last Admin: 08/27/18 10:17 Dose: 10 mg Lactated Ringer's (Lactated Ringer's) 1,000 mls @ 100 mls/hr IV .Q10H [facility] Last Admin: 08/27/18 03:00 Dose: 100 mls/hr Daptomycin 500 mg/ Sodium (Chloride) 100 mls @ 100 mls/hr IV Q24H [facility]; Protocol Stop: 08/31/18 19:31 Last Admin: 08/27/18 19:41 Dose: 100 mls/hr Meropenem 500 mg/ Sodium (Chloride) 100 mls @ 100 mls/hr IVPB Q8H [facility]; Protocol Last Admin: 08/27/18 18:38 Dose: 100 mls/hr Ibuprofen (Motrin Tab) 600 mg PO Q8H PRN PRN Reason: Pain, moderate (4-7) Last Admin: 08/27/18 13:44 Dose: 600 mg Ondansetron HCl (Zofran Inj) 4 mg IVP Q6H PRN PRN Reason: Nausea/Vomiting Potassium Chloride (K-Dur 20 Meq Er Tab) 20 meq PO DAILY [facility] Last Admin: 08/27/18 10:17 Dose: 20 meq Saliva Substitute (First Magic Mouthwash) 5 ml PO Q8 [facility] Last Admin: 08/27/18 13:46 Dose: 5 ml - Labs Labs: 08/27/18 07:01 08/27/18 07:01 PT 13.9 SECONDS (9.7-12.2) H 08/26/18 07:05 INR 1.3 08/26/18 07:05 APTT 33.4 SECONDS (21-34) 08/26/18 07:05
--- NOTE | 2018-08-27 23:03 | CP.PCM.PN ---
Subjective - Date & Time of Evaluation Date of Evaluation: 08/27/18 Time of Evaluation: 23:01 - Subjective Subjective: The patient does not report any new symptoms, except for pain at surgical site. Starting to ambulate today, good appetite. Await cultures from wound site Objective - Vital Signs/Intake and Output Vital Signs (last 24 hours): Temp Pulse Resp BP Pulse Ox 98.1 F 70 20 128/77 99 08/27/18 15:00 08/27/18 15:00 08/27/18 15:00 08/27/18 15:00 08/27/18 15:00 Intake and Output: 08/27/18 08/28/18 18:59 06:59 Intake Total 900 Balance 900 - Medications Medications: Current Medications Acetaminophen (Tylenol 325mg Tab) 650 mg PO Q6 PRN PRN Reason: Pain, Mild (1-3) Last Admin: 08/26/18 16:06 Dose: 650 mg Amlodipine Besylate (Norvasc) 10 mg PO DAILY [facility] Last Admin: 08/27/18 10:17 Dose: 10 mg Daptomycin 500 mg/ Sodium (Chloride) 100 mls @ 100 mls/hr IV Q24H [facility]; Protocol Stop: 08/31/18 19:31 Last Admin: 08/27/18 19:41 Dose: 100 mls/hr Meropenem 500 mg/ Sodium (Chloride) 100 mls @ 100 mls/hr IVPB Q8H [facility]; Protocol Last Admin: 08/27/18 18:38 Dose: 100 mls/hr Ibuprofen (Motrin Tab) 600 mg PO Q8H PRN PRN Reason: Pain, moderate (4-7) Last Admin: 08/27/18 21:20 Dose: 600 mg Ondansetron HCl (Zofran Inj) 4 mg IVP Q6H PRN PRN Reason: Nausea/Vomiting Potassium Chloride (K-Dur 20 Meq Er Tab) 20 meq PO DAILY [facility] Last Admin: 08/27/18 10:17 Dose: 20 meq Saliva Substitute (First Magic Mouthwash) 5 ml PO Q8 [facility] Last Admin: 08/27/18 21:21 Dose: 5 ml - Labs Labs: 08/27/18 07:01 08/27/18 07:01 PT 13.9 SECONDS (9.7-12.2) H 05/15/19 07:05 INR 1.3 08/26/18 07:05 APTT 33.4 SECONDS (21-34) 08/26/18 07:05 Assessment and Plan (1) Myeloma Assessment & Plan: Multiple myeloma, IgA kappa, diffuse bony lytic lesions, s/p debridement of left forearm lesion. ID on board. Status: Acute
[2018-08-28] MEDS: Meropenem 500 MG in Sodium Chloride 0.9% 100 ML IVPB SCH (04:23)
[2018-08-28] MEDS: Mag&Al/Simet/Diphen/Lido 237 ML KIT PO SCH ×3 (06:05→22:06)
[2018-08-28] MEDS: Potassium Chloride 20 mEq ER Tab PO SCH (10:01)
[2018-08-28] MEDS: Enoxaparin 40 mg Syringe SC SCH (10:02)
--- NOTE | 2018-08-28 15:21 | CP.PCM.PN ---
Subjective - Date & Time of Evaluation Date of Evaluation: 08/28/18 Time of Evaluation: 15:31 - Subjective Subjective: General Surgery Note for Dr. Darden Patient seen and examined at bedside. No acute event overnight. Patient is s/p debridement and I&D of right forearm abscess POD#2. Patient denies fever/chills. She is tolerating diet. Wound vac being placed today. Objective - Vital Signs/Intake and Output Vital Signs (last 24 hours): Temp Pulse Resp BP Pulse Ox 98.1 F 73 20 144/75 95 08/28/18 07:00 08/28/18 10:03 08/28/18 07:00 08/28/18 10:03 08/28/18 07:00 Intake and Output: 08/28/18 08/28/18 06:59 18:59 Intake Total 900 Balance 900 - Medications Medications: Current Medications Acetaminophen (Tylenol 325mg Tab) 650 mg PO Q6 PRN PRN Reason: Pain, Mild (1-3) Last Admin: 08/26/18 16:06 Dose: 650 mg Amlodipine Besylate (Norvasc) 10 mg PO DAILY [facility] Last Admin: 08/28/18 10:02 Dose: 10 mg Enoxaparin Sodium (Lovenox) 40 mg SC DAILY [facility] Last Admin: 08/28/18 10:02 Dose: 40 mg Daptomycin 500 mg/ Sodium (Chloride) 100 mls @ 100 mls/hr IV Q24H [facility]; Protocol Stop: 08/31/18 19:31 Last Admin: 08/27/18 19:41 Dose: 100 mls/hr Ibuprofen (Motrin Tab) 600 mg PO Q8H PRN PRN Reason: Pain, moderate (4-7) Last Admin: 08/27/18 21:20 Dose: 600 mg Ondansetron HCl (Zofran Inj) 4 mg IVP Q6H PRN PRN Reason: Nausea/Vomiting Potassium Chloride (K-Dur 20 Meq Er Tab) 20 meq PO DAILY [facility] Last Admin: 08/28/18 10:01 Dose: 20 meq Saliva Substitute (First Magic Mouthwash) 5 ml PO Q8 [facility] Last Admin: 08/28/18 13:03 Dose: 5 ml - Labs Labs: 08/27/18 07:01 08/27/18 07:01 PT 13.9 SECONDS (9.7-12.2) H 08/26/18 07:05 INR 1.3 08/26/18 07:05 APTT 33.4 SECONDS (21-34) 08/26/18 07:05 - Additional Findings Additional findings: - Constitutional Appears: Non-toxic, No Acute Distress - Head Exam Head Exam: ATRAUMATIC, NORMAL INSPECTION, NORMOCEPHALIC - Eye Exam Eye Exam: EOMI, Normal appearance - ENT Exam ENT Exam: Mucous Membranes Moist, Normal Exam - Neck Exam Neck Exam: Full ROM, Normal Inspection - Respiratory Exam Respiratory Exam: NORMAL BREATHING PATTERN - Cardiovascular Exam Cardiovascular Exam: REGULAR RHYTHM, +S1, +S2 - GI/Abdominal Exam GI & Abdominal Exam: Soft. absent: Tenderness - Extremities Exam Additional comments: Right forearm dressing in place- clean/dry/intact. Palpable radial pulse. wound vac being applied today - Neurological Exam Neurological Exam: Alert, Awake, CN II-XII Intact, Oriented x3 - Psychiatric Exam Psychiatric exam: Normal Affect, Normal Mood - Skin Skin Exam: Dry, Normal Color, Warm Assessment and Plan - Assessment and Plan (Free Text) Assessment: 68F s/p Incision and drainage with debridment of Right lateral forearm abscess POD#2 Plan: wound vac application today Continue Abx Continue pain control Ambulation/IS/OOBTC Elevate right forearm and hand Management as per primary team Discussed with Dr. Katalina Dwyer PGY2
--- NOTE | 2018-08-28 18:04 | CP.PCM.PN ---
Subjective - Date & Time of Evaluation Date of Evaluation: 08/28/18 Time of Evaluation: 17:55 - Subjective Subjective: INFECTIOUS DISEASE PROGRESS NOTES ARMEN MITCHELL MD, FACP 08/28/2018 550-A CHART REVIEWED PT EXAMINED CASE DISCUSSED CLINICALLY RESPONDING TO DIRECTED MEDICAL/SURGICAL CARE-SURGICAL I&D AND AB. THIS MORNING I WAS NOTIFIED THAT THE WOUND WAS POSITIVE FOR MRSA WITH NOTED SENSITIVIES, INVIEW OF LINE ISSUES, CUBICIN IS A BETTER CHOICE, ESPECIALLY SINCE NO FREQUENT LEVELS NEED TO BE MEASURED. CONSIDER, WHEN READY EITHER ZYVOX 600MG PO BID OR VIBRAMYCIN 100MG PO BID. BOTH COST AND DRUG INTERACTIONS NEED TO BE DETERMINED. I WOULD REPEAT A CT SCAN OF THE WOUND TO DETERMINE CLINICAL RESPONSE RADIOLOGICALLY, ESPECIALLY WITH HER UNDERLYING IMUNOSUPPRESION. C/C: PAIN FROM THE WOUND VAC... REPEAT LABS TOMORROW. I WILL BE AWAY FRIDAY TO FRIDAY OF THIS WEEK. I WILL DISCUSS WITH YOU PERSONALLY. THANK YOU. SHE WILL FOLLOW UP WITH ME WHEN I RETURN AN OUTPATIENT. Objective - Vital Signs/Intake and Output Vital Signs (last 24 hours): Temp Pulse Resp BP Pulse Ox 98.2 F 85 20 136/82 98 08/28/18 15:00 08/28/18 15:00 08/28/18 15:00 08/28/18 15:00 08/28/18 15:00 Intake and Output: 08/28/18 08/28/18 06:59 18:59 Intake Total 900 Balance 900 - Medications Medications: Current Medications Acetaminophen (Tylenol 325mg Tab) 650 mg PO Q6 PRN PRN Reason: Pain, Mild (1-3) Last Admin: 08/26/18 16:06 Dose: 650 mg Amlodipine Besylate (Norvasc) 10 mg PO DAILY [facility] Last Admin: 08/28/18 10:02 Dose: 10 mg Enoxaparin Sodium (Lovenox) 40 mg SC DAILY [facility] Last Admin: 08/28/18 10:02 Dose: 40 mg Daptomycin 500 mg/ Sodium (Chloride) 100 mls @ 100 mls/hr IV Q24H [facility]; Protocol Stop: 08/31/18 19:31 Last Admin: 08/27/18 19:41 Dose: 100 mls/hr Ibuprofen (Motrin Tab) 600 mg PO Q8H PRN PRN Reason: Pain, moderate (4-7) Last Admin: 08/28/18 17:00 Dose: 600 mg Ondansetron HCl (Zofran Inj) 4 mg IVP Q6H PRN PRN Reason: Nausea/Vomiting Potassium Chloride (K-Dur 20 Meq Er Tab) 20 meq PO DAILY [facility] Last Admin: 08/28/18 10:01 Dose: 20 meq Saliva Substitute (First Magic Mouthwash) 5 ml PO Q8 [facility] Last Admin: 08/28/18 13:03 Dose: 5 ml - Labs Labs: 08/27/18 07:01 08/27/18 07:01 PT 13.9 SECONDS (9.7-12.2) H 08/26/18 07:05 INR 1.3 08/26/18 07:05 APTT 33.4 SECONDS (21-34) 08/26/18 07:05
[2018-08-28] MEDS: DAPTOmycin 500 MG in Sodium Chloride 0.9% 100 ML IV SCH (19:49)
--- NOTE | 2018-08-28 20:58 | CP.PCM.PN ---
Subjective - Date & Time of Evaluation Date of Evaluation: 08/28/18 Time of Evaluation: 20:58 - Subjective Subjective: Today wound VAC placed by the surgical team on the right forearm. Patient is complaining of pain increasing pain noted. Patient just received pain medications. No fever. Patient has some swelling over the right upper extremity. But she is able to move the fingers. Patient did not sleep well the whole day and now she is trying to sleep but unable to sleep because of the pain. Patient was also seen by infectious disease. Currently antibiotic reduced to Cubicin Wound culture positive for MRSA multidrug-resistant. On examination: Vital signs are stable. Afebrile. Chest good air entry Regular heart sounds. Abdominal tenderness negative. 1+ pedal edema in the legs noted Patient is a history of multiple myeloma, bone disease lytic lesions. Admitted with the right upper extremity abscess MRSA infection status post incision and drainage on wound VAC now. Currently receiving Cubicin. Will monitor the renal status, labs tomorrow. Continue the current treatment. Pain management will follow up the patient Objective - Vital Signs/Intake and Output Vital Signs (last 24 hours): Temp Pulse Resp BP Pulse Ox 98.2 F 85 20 136/82 98 08/28/18 15:00 08/28/18 15:00 08/28/18 15:00 08/28/18 15:00 08/28/18 15:00 - Medications Medications: Current Medications Acetaminophen (Tylenol 325mg Tab) 650 mg PO Q6 PRN PRN Reason: Pain, Mild (1-3) Last Admin: 08/28/18 19:53 Dose: 650 mg Amlodipine Besylate (Norvasc) 10 mg PO DAILY [facility] Last Admin: 08/28/18 10:02 Dose: 10 mg Enoxaparin Sodium (Lovenox) 40 mg SC DAILY [facility] Last Admin: 08/28/18 10:02 Dose: 40 mg Daptomycin 500 mg/ Sodium (Chloride) 100 mls @ 100 mls/hr IV Q24H [facility]; Protocol Stop: 08/31/18 19:31 Last Admin: 08/28/18 19:49 Dose: 100 mls/hr Ibuprofen (Motrin Tab) 600 mg PO Q8H PRN PRN Reason: Pain, moderate (4-7) Last Admin: 08/28/18 17:00 Dose: 600 mg Ondansetron HCl (Zofran Inj) 4 mg IVP Q6H PRN PRN Reason: Nausea/Vomiting Potassium Chloride (K-Dur 20 Meq Er Tab) 20 meq PO DAILY [facility] Last Admin: 08/28/18 10:01 Dose: 20 meq Saliva Substitute (First Magic Mouthwash) 5 ml PO Q8 [facility] Last Admin: 08/28/18 13:03 Dose: 5 ml - Labs Labs: 08/27/18 07:01 08/27/18 07:01 PT 13.9 SECONDS (9.7-12.2) H 08/26/18 07:05 INR 1.3 08/26/18 07:05 APTT 33.4 SECONDS (21-34) 08/26/18 07:05
[2018-08-29] MEDS: Mag&Al/Simet/Diphen/Lido 237 ML KIT PO SCH ×3 (06:35→22:35)
[2018-08-29 08:37] LABS: BASO % 1.3 % (0.0-2.0); EOS % 1.9 % (0.0-4.0); HEMOGLOBIN 10.8 g/dL (11.0-16.0); LYMPH # 0.5 K/uL (1.0-4.3); LYMPH % 21.9 % (20.0-40.0); MEAN CELL VOLUME 89.5 fL (81.0-99.0); MEAN CORPUSCULAR HEMOGLOBIN 29.3 pg (27.0-31.0); MEAN CORPUSCULAR HGB CONC 32.7 g/dL (33.0-37.0); MEAN PLATELET VOLUME 9.4 fL (7.2-11.7); MONO # 0.4 K/uL (0.0-0.8); MONO % 20.3 % (0.0-10.0); NEUT # 1.1 K/uL (1.8-7.0); NEUT % 54.6 % (50.0-75.0); NRBC % 0.4 % (0.0-2.0); PLATELET COUNT 158 K/uL (130-400); RBC 3.71 Mil/uL (3.80-5.20); RED CELL DISTRIBUTION WIDTH 19.9 % (11.5-14.5); WHITE BLOOD COUNT 2.1 K/uL (4.8-10.8)
[2018-08-29 08:39] LABS: ALB/GLOB RATIO 1.1 (1.0-2.1); ALBUMIN 3.7 g/dL (3.5-5.0); ALT/SGPT 21 U/L (9-52); AST/SGOT 21 U/L (14-36); BLOOD UREA NITROGEN 10 mg/dL (7-17); GFR NON-AFRICAN AMERICAN > 60
--- NOTE | 2018-08-29 08:42 | CP.PCM.PN ---
Subjective - Date & Time of Evaluation Date of Evaluation: 08/29/18 Time of Evaluation: 08:39 - Subjective Subjective: Surgery Progress Note for Dr. Darden 68F seen and evaluated at bedside this morning. No acute events overnight. No complaints this morning. Wound vac placed yesterday, minimal output. Denies f/c, n/v/d, SOB, CP, numbness/tingling, or urinary symptoms. Objective - Vital Signs/Intake and Output Vital Signs (last 24 hours): Temp Pulse Resp BP Pulse Ox 98 F 66 18 133/70 99 08/29/18 07:00 08/29/18 07:00 08/29/18 07:00 08/29/18 07:00 08/29/18 07:00 - Medications Medications: Current Medications Acetaminophen (Tylenol 325mg Tab) 650 mg PO Q6 PRN PRN Reason: Pain, Mild (1-3) Last Admin: 08/28/18 19:53 Dose: 650 mg Amlodipine Besylate (Norvasc) 10 mg PO DAILY [facility] Last Admin: 08/28/18 10:02 Dose: 10 mg Enoxaparin Sodium (Lovenox) 40 mg SC DAILY [facility] Last Admin: 08/28/18 10:02 Dose: 40 mg Daptomycin 500 mg/ Sodium (Chloride) 100 mls @ 100 mls/hr IV Q24H [facility]; Protocol Stop: 08/31/18 19:31 Last Admin: 08/28/18 19:49 Dose: 100 mls/hr Ibuprofen (Motrin Tab) 600 mg PO Q8H PRN PRN Reason: Pain, moderate (4-7) Last Admin: 08/29/18 03:05 Dose: 600 mg Ondansetron HCl (Zofran Inj) 4 mg IVP Q6H PRN PRN Reason: Nausea/Vomiting Potassium Chloride (K-Dur 20 Meq Er Tab) 20 meq PO DAILY [facility] Last Admin: 08/28/18 10:01 Dose: 20 meq Saliva Substitute (First Magic Mouthwash) 5 ml PO Q8 [facility] Last Admin: 08/29/18 06:35 Dose: 5 ml - Labs Labs: 08/27/18 07:01 08/27/18 07:01 PT 13.9 SECONDS (9.7-12.2) H 08/26/18 07:05 INR 1.3 08/26/18 07:05 APTT 33.4 SECONDS (21-34) 08/26/18 07:05 - Constitutional Appears: Well, Non-toxic, No Acute Distress - Head Exam Head Exam: ATRAUMATIC, NORMAL INSPECTION, NORMOCEPHALIC - Eye Exam Eye Exam: EOMI - ENT Exam ENT Exam: Mucous Membranes Moist - Respiratory Exam Respiratory Exam: NORMAL BREATHING PATTERN. absent: Wheezes, Respiratory Distress - Cardiovascular Exam Cardiovascular Exam: REGULAR RHYTHM, +S1, +S2. absent: Murmur - GI/Abdominal Exam GI & Abdominal Exam: Soft, Normal Bowel Sounds. absent: Tenderness - Extremities Exam Additional comments: right forearm wound vac - cont 125mmHg, no leak - Neurological Exam Neurological Exam: Alert, Awake, Oriented x3 - Psychiatric Exam Psychiatric exam: Normal Affect, Normal Mood - Skin Skin Exam: Dry, Intact, Normal Color, Warm Assessment and Plan - Assessment and Plan (Free Text) Assessment: 68F s/p debridement of right forearm with wound vac placed 08/28 Plan: Wound vac to be changed every 3 days Monitor wound for improvement Wound care team on board Monitor output from wound vac Analgesics PRN Final PATH: acute and chronic inflammation, granulation tissue, viable and nonviable soft tissue - no sign of malignancy D/w Dr. Katalina Recio PGY1
[2018-08-29 09:24] LABS: LYMPHOCYTE 23 % (20-40); MONOCYTE 23 % (0-10); NEUTROPHIL 54 % (50-75); TOTAL CELLS COUNTED 100
[2018-08-29 09:25] LABS: ANISOCYTOSIS MODERATE; HYPOCHROMIC SLIGHT; LARGE PLATELETS PRESENT; PLATELET ESTIMATE NORMAL (NORMAL); POLYCHROMIC SLIGHT
[2018-08-29] MEDS: Enoxaparin 40 mg Syringe SC SCH (10:00)
[2018-08-29] MEDS: Potassium Chloride 20 mEq ER Tab PO SCH (10:00)
[2018-08-29] MEDS: DAPTOmycin 500 MG in Sodium Chloride 0.9% 100 ML IV SCH (20:30)
--- NOTE | 2018-08-29 20:57 | CP.PCM.PN ---
Subjective - Date & Time of Evaluation Date of Evaluation: 08/29/18 Time of Evaluation: 20:55 - Subjective Subjective: Patient is currently feeling well, no chest pain or shortness of breath. Denies any diarrhea. Going to the bathroom normally, and also urine output is better On examination: Vital signs are stable. Chest good air entry bilaterally regular heart sounds nontender abdomen no pedal edema. Patient is having the right side arm wound VAC noted. There is not much secretions noted. We will discuss with the surgery about the wound VAC discontinuation Currently patient is on Cubicin for MRSA infection. Patient is a 68-year-old female with a history of multiple myeloma status post bone marrow transplant on multiple treatment admitted with sepsis and localized abscess cellulitis of the right upper extremity status post incision and drai nage. Pathology is negative for malignancy. Continue the wound VAC and antibiotic repeat the CBC in the morning and will follow the patient Objective - Vital Signs/Intake and Output Vital Signs (last 24 hours): Temp Pulse Resp BP Pulse Ox 98.1 F 69 20 114/69 99 08/29/18 16:00 08/29/18 16:00 08/29/18 16:00 08/29/18 16:00 08/29/18 16:00 - Medications Medications: Current Medications Acetaminophen (Tylenol 325mg Tab) 650 mg PO Q6 PRN PRN Reason: Pain, Mild (1-3) Last Admin: 08/28/18 19:53 Dose: 650 mg Amlodipine Besylate (Norvasc) 10 mg PO DAILY [facility] Last Admin: 08/29/18 10:00 Dose: 10 mg Enoxaparin Sodium (Lovenox) 40 mg SC DAILY [facility] Last Admin: 08/29/18 10:00 Dose: 40 mg Daptomycin 500 mg/ Sodium (Chloride) 100 mls @ 100 mls/hr IV Q24H [facility]; Protocol Stop: 08/31/18 19:31 Last Admin: 08/28/18 19:49 Dose: 100 mls/hr Ibuprofen (Motrin Tab) 600 mg PO Q8H PRN PRN Reason: Pain, moderate (4-7) Last Admin: 08/29/18 13:59 Dose: 600 mg Ondansetron HCl (Zofran Inj) 4 mg IVP Q6H PRN PRN Reason: Nausea/Vomiting Potassium Chloride (K-Dur 20 Meq Er Tab) 20 meq PO DAILY [facility] Last Admin: 08/29/18 10:00 Dose: 20 meq Saliva Substitute (First Magic Mouthwash) 5 ml PO Q8 [facility] Last Admin: 08/29/18 14:00 Dose: Not Given - Labs Labs: 08/29/18 08:10 08/29/18 08:10 PT 13.9 SECONDS (9.7-12.2) H 08/26/18 07:05 INR 1.3 08/26/18 07:05 APTT 33.4 SECONDS (21-34) 08/26/18 07:05
[2018-08-30] MEDS: Mag&Al/Simet/Diphen/Lido 237 ML KIT PO SCH ×3 (06:14→21:30)
--- NOTE | 2018-08-30 07:12 | CP.PCM.PN ---
Subjective - Date & Time of Evaluation Date of Evaluation: 08/30/18 Time of Evaluation: 07:09 - Subjective Subjective: Surgery Progress Note for Dr. Darden 68F seen and evaluated at bedside this morning. No complaints this morning. Patient's wound vac clogged and was set to be replaced however patient decided she no longer wants the wound vac. Placed dressings over wound for now. Denies f/c, n/v/d, SOB, CP, extremity pain, or urinary symptoms. Objective - Vital Signs/Intake and Output Vital Signs (last 24 hours): Temp Pulse Resp BP Pulse Ox 98.2 F 83 20 142/75 98 08/30/18 00:00 08/30/18 00:00 08/30/18 00:00 08/30/18 00:00 08/30/18 00:00 - Medications Medications: Current Medications Acetaminophen (Tylenol 325mg Tab) 650 mg PO Q6 PRN PRN Reason: Pain, Mild (1-3) Last Admin: 08/28/18 19:53 Dose: 650 mg Amlodipine Besylate (Norvasc) 10 mg PO DAILY [facility] Last Admin: 08/29/18 10:00 Dose: 10 mg Enoxaparin Sodium (Lovenox) 40 mg SC DAILY [facility] Last Admin: 08/29/18 10:00 Dose: 40 mg Daptomycin 500 mg/ Sodium (Chloride) 100 mls @ 100 mls/hr IV Q24H [facility]; Protocol Stop: 08/31/18 19:31 Last Admin: 08/29/18 20:30 Dose: 100 mls/hr Ibuprofen (Motrin Tab) 600 mg PO Q8H PRN PRN Reason: Pain, moderate (4-7) Last Admin: 08/29/18 22:33 Dose: 600 mg Ondansetron HCl (Zofran Inj) 4 mg IVP Q6H PRN PRN Reason: Nausea/Vomiting Potassium Chloride (K-Dur 20 Meq Er Tab) 20 meq PO DAILY [facility] Last Admin: 08/29/18 10:00 Dose: 20 meq Saliva Substitute (First Magic Mouthwash) 5 ml PO Q8 [facility] Last Admin: 08/30/18 06:14 Dose: Not Given - Labs Labs: 08/29/18 08:10 08/29/18 08:10 PT 13.9 SECONDS (9.7-12.2) H 08/26/18 07:05 INR 1.3 08/26/18 07:05 APTT 33.4 SECONDS (21-34) 08/26/18 07:05 - Constitutional Appears: Well, Non-toxic, No Acute Distress - Head Exam Head Exam: ATRAUMATIC, NORMAL INSPECTION, NORMOCEPHALIC - Eye Exam Eye Exam: EOMI - ENT Exam ENT Exam: Mucous Membranes Moist - Respiratory Exam Respiratory Exam: NORMAL BREATHING PATTERN. absent: Wheezes, Respiratory Distress - GI/Abdominal Exam GI & Abdominal Exam: Soft, Normal Bowel Sounds. absent: Tenderness - Extremities Exam Additional comments: right forearm wound clean, beefy red base, no necrosis or drainage noted - Neurological Exam Neurological Exam: Alert, Awake, Oriented x3 - Psychiatric Exam Psychiatric exam: Normal Affect, Normal Mood - Skin Skin Exam: Dry, Intact, Normal Color, Warm Assessment and Plan - Assessment and Plan (Free Text) Assessment: 68F s/p debridement and I&D of right forearm wound POD4 Plan: Wound cx + for MRSA Local wound care Dressings - medihoney+optifoam Change dressings daily Continue IV Abx Further recommendations per Dr. Katalina Recio PGY1
[2018-08-30 07:39] LABS: BASO % 0.6 % (0.0-2.0); EOS % 0.9 % (0.0-4.0); HEMOGLOBIN 11.1 g/dL (11.0-16.0); LYMPH # 0.5 K/uL (1.0-4.3); LYMPH % 21.3 % (20.0-40.0); MEAN CELL VOLUME 89.7 fL (81.0-99.0); MEAN CORPUSCULAR HGB CONC 32.3 g/dL (33.0-37.0); MEAN PLATELET VOLUME 9.4 fL (7.2-11.7); MONO # 0.4 K/uL (0.0-0.8); MONO % 15.7 % (0.0-10.0); NEUT # 1.5 K/uL (1.8-7.0); NEUT % 61.5 % (50.0-75.0); NRBC % 0.2 % (0.0-2.0); RBC 3.84 Mil/uL (3.80-5.20); RED CELL DISTRIBUTION WIDTH 19.5 % (11.5-14.5); WHITE BLOOD COUNT 2.4 K/uL (4.8-10.8)
[2018-08-30] MEDS: Potassium Chloride 20 mEq ER Tab PO SCH (10:11)
[2018-08-30] MEDS: Enoxaparin 40 mg Syringe SC SCH (10:12)
[2018-08-30] MEDS: DAPTOmycin 500 MG in Sodium Chloride 0.9% 100 ML IV SCH (21:30)
[2018-08-31] MEDS: Mag&Al/Simet/Diphen/Lido 237 ML KIT PO SCH ×3 (06:52→22:47)
--- NOTE | 2018-08-31 07:49 | CP.PCM.PN ---
Subjective - Date & Time of Evaluation Date of Evaluation: 08/31/18 Time of Evaluation: 07:48 - Subjective Subjective: Surgery Progress Note for Dr. Alexandr Ivan, PGY-2 Pt seen/examined at bedside Pt reports that RUE pain is well controlled, no complaints. Denies F & C. Ambulating. Pt declined replacement of wound vac to wound. Objective - Vital Signs/Intake and Output Vital Signs (last 24 hours): Temp Pulse Resp BP Pulse Ox 98.3 F 68 20 129/79 98 08/31/18 07:38 08/31/18 07:38 08/31/18 07:38 08/31/18 07:38 08/31/18 07:38 Intake and Output: 08/31/18 08/31/18 06:59 18:59 Intake Total 900 Balance 900 - Medications Medications: Current Medications Acetaminophen (Tylenol 325mg Tab) 650 mg PO Q6 PRN PRN Reason: Pain, Mild (1-3) Last Admin: 08/28/18 19:53 Dose: 650 mg Amlodipine Besylate (Norvasc) 10 mg PO DAILY [facility] Last Admin: 08/30/18 10:11 Dose: 10 mg Enoxaparin Sodium (Lovenox) 40 mg SC DAILY [facility] Last Admin: 08/30/18 10:12 Dose: 40 mg Daptomycin 500 mg/ Sodium (Chloride) 100 mls @ 100 mls/hr IV Q24H [facility]; Protocol Stop: 08/31/18 19:31 Last Admin: 08/30/18 21:30 Dose: 100 mls/hr Ibuprofen (Motrin Tab) 600 mg PO Q8H PRN PRN Reason: Pain, moderate (4-7) Last Admin: 08/30/18 21:33 Dose: 600 mg Ondansetron HCl (Zofran Inj) 4 mg IVP Q6H PRN PRN Reason: Nausea/Vomiting Potassium Chloride (K-Dur 20 Meq Er Tab) 20 meq PO DAILY [facility] Last Admin: 08/30/18 10:11 Dose: 20 meq Saliva Substitute (First Magic Mouthwash) 5 ml PO Q8 [facility] Last Admin: 08/31/18 06:52 Dose: Not Given - Labs Labs: 08/30/18 07:20 08/29/18 08:10 PT 13.9 SECONDS (9.7-12.2) H 08/26/18 07:05 INR 1.3 08/26/18 07:05 APTT 33.4 SECONDS (21-34) 08/26/18 07:05 - Constitutional Appears: Non-toxic, No Acute Distress - Head Exam Head Exam: ATRAUMATIC, NORMAL INSPECTION, NORMOCEPHALIC - Eye Exam Eye Exam: EOMI, Normal appearance - ENT Exam ENT Exam: Mucous Membranes Moist, Normal Exam - Neck Exam Neck Exam: Full ROM, Normal Inspection - Respiratory Exam Respiratory Exam: NORMAL BREATHING PATTERN - Cardiovascular Exam Cardiovascular Exam: REGULAR RHYTHM, +S1, +S2 - GI/Abdominal Exam GI & Abdominal Exam: Soft. absent: Tenderness - Extremities Exam Additional comments: Right lateral forearm with superficial wound, smaller diameter than previously assess, slightly tender to palpation, granulation tissue at base. - Neurological Exam Neurological Exam: Alert, Awake, CN II-XII Intact, Oriented x3 - Psychiatric Exam Psychiatric exam: Normal Affect, Normal Mood - Skin Skin Exam: Dry, Normal Color, Warm Assessment and Plan - Assessment and Plan (Free Text) Assessment: 68F POD#5 s/p debridement and I&D of right forearm wound Plan: continue local wound care dressing changes PRN Pain control PRN Abx as per ID Further care as per primary team Will TONI Ivan, PGY-2
[2018-08-31] MEDS: Potassium Chloride 20 mEq ER Tab PO SCH (09:16)
[2018-08-31] MEDS: Enoxaparin 40 mg Syringe SC SCH (09:16)
[2018-08-31] MEDS: DAPTOmycin 500 MG in Sodium Chloride 0.9% 100 ML IV SCH (19:37)
[2018-09-01 01:12] VITALS: O2SAT 98
[2018-09-01] MEDS: Mag&Al/Simet/Diphen/Lido 237 ML KIT PO SCH ×2 (06:02→13:11)
[2018-09-01 07:47] VITALS: BP 126/72; PULSE 66; RESP 20; TEMP 98.6
[2018-09-01] MEDS: Potassium Chloride 20 mEq ER Tab PO SCH (10:33)
[2018-09-01] MEDS: Enoxaparin 40 mg Syringe SC SCH (10:33)
--- NOTE | 2018-09-01 11:53 | CP.PCM.DIS ---
Provider - Provider Date of Admission: 08/25/18 17:47 Attending physician: Nora Kaplan MD Consults: 08/25/18 23:28 Hematology Oncology Consult Routine Comment: Consulting Provider: Lashay Morley Consulting Physician: Lashay Morley Reason for Consult: MM Infectious Disease Consult Routine Comment: Consulting Provider: Joe Cole Consulting Physician: Joe Cole Reason for Consult: rt arm abscess 08/26/18 10:36 General Surgery Consult Routine Comment: Right forearm abscess Consulting Provider: Yasir Darden Consulting Physician: Yasir Darden Reason for Consult: Right forearm abscess 08/30/18 07:13 Wound Care [Nursing Referral for Wound Care] Routine Comment: Physician Instructions: medihoney+mepelex/optifoam dressing changes daily Reason For Exam: right forearm wound Hospital Course - Lab Results Lab Results: Micro Results 08/25/18 14:30 Blood Blood Culture - Final NO GROWTH AFTER 5 DAYS 08/25/18 14:30 Blood Gram Stain - Final TEST NOT PERFORMED 08/25/18 15:05 Blood Blood Culture - Final NO GROWTH AFTER 5 DAYS 08/25/18 15:05 Blood Gram Stain - Final TEST NOT PERFORMED 08/26/18 12:47 Abscess - Arm-Right Gram Stain - Final 08/26/18 12:47 Abscess - Arm-Right Wound Culture - Final Methicillin Resistant S Aureus Most Recent Lab Values WBC 2.4 K/uL (4.8-10.8) L 08/30/18 07:20 RBC 3.84 Mil/uL (3.80-5.20) 08/30/18 07:20 Hgb 11.1 g/dL (11.0-16.0) 08/30/18 07:20 Hct 34.4 % (34.0-47.0) 08/30/18 07:20 MCV 89.7 fL (81.0-99.0) 08/30/18 07:20 MCH 29.0 pg (27.0-31.0) 08/30/18 07:20 MCHC 32.3 g/dL (33.0-37.0) L 08/30/18 07:20 RDW 19.5 % (11.5-14.5) H 08/30/18 07:20 Plt Count 184 K/uL (130-400) 08/30/18 07:20 MPV 9.4 fL (7.2-11.7) 08/30/18 07:20 Neut % (Auto) 61.5 % (50.0-75.0) 08/30/18 07:20 Lymph % (Auto) 21.3 % (20.0-40.0) 08/30/18 07:20 Hall % (Auto) 15.7 % (0.0-10.0) H 08/30/18 07:20 Eos % (Auto) 0.9 % (0.0-4.0) 08/30/18 07:20 Baso % (Auto) 0.6 % (0.0-2.0) 08/30/18 07:20 Neut # (Auto) 1.5 K/uL (1.8-7.0) L 08/30/18 07:20 Lymph # (Auto) 0.5 K/uL (1.0-4.3) L 08/30/18 07:20 Hall # (Auto) 0.4 K/uL (0.0-0.8) 08/30/18 07:20 Eos # (Auto) 0.0 K/uL (0.0-0.7) 08/30/18 07:20 Baso # (Auto) 0.0 K/uL (0.0-0.2) 08/30/18 07:20 Neutrophils % (Manual) 54 % (50-75) 08/29/18 08:10 Band Neutrophils % 2 % (0-2) 08/26/18 07:05 Lymphocytes % (Manual) 23 % (20-40) 08/29/18 08:10 Monocytes % (Manual) 23 % (0-10) H 08/29/18 08:10 Differential Comment 08/30/18 07:20 Platelet Estimate Normal (NORMAL) 08/29/18 08:10 Large Platelets Present 08/29/18 08:10 Polychromasia Slight 08/29/18 08:10 Hypochromasia (manual) Slight 08/29/18 08:10 Anisocytosis (manual) Moderate 08/29/18 08:10 Ovalocytes Slight 08/26/18 07:05 ESR 100 mm/hr (0-20) H 08/25/18 15:12 PT 13.9 SECONDS (9.7-12.2) H 08/26/18 07:05 INR 1.3 08/26/18 07:05 APTT 33.4 SECONDS (21-34) 08/26/18 07:05 Sodium 140 mmol/L (132-148) 08/29/18 08:10 Potassium 3.9 mmol/L (3.6-5.2) 08/29/18 08:10 Chloride 107 mmol/L (98-107) 08/29/18 08:10 Carbon Dioxide 24 mmol/L (22-30) 08/29/18 08:10 Anion Gap 13 (10-20) 08/29/18 08:10 BUN 10 mg/dL (7-17) 08/29/18 08:10 Creatinine 0.6 mg/dL (0.7-1.2) L 08/29/18 08:10 Est GFR ( Amer) > 60 08/29/18 08:10 Est GFR (Non-Af Amer) > 60 08/29/18 08:10 Random Glucose 90 mg/dL (65-105) 08/29/18 08:10 Calcium 9.0 mg/dl (8.6-10.4) 08/29/18 08:10 Phosphorus 2.3 mg/dL (2.5-4.5) L 08/27/18 07:01 Magnesium 2.0 mg/dL (1.6-2.3) 08/27/18 07:01 Total Bilirubin 0.5 mg/dL (0.2-1.3) 08/29/18 08:10 AST 21 U/L (14-36) 08/29/18 08:10 ALT 21 U/L (9-52) 08/29/18 08:10 Alkaline Phosphatase 88 U/L (38-126) 08/29/18 08:10 Total Protein 6.9 g/dL (6.3-8.3) 08/29/18 08:10 Albumin 3.7 g/dL (3.5-5.0) 08/29/18 08:10 Globulin 3.2 gm/dL (2.2-3.9) 08/29/18 08:10 Albumin/Globulin Ratio 1.1 (1.0-2.1) 08/29/18 08:10 Blood Type O POSITIVE 08/26/18 07:05 Antibody Screen Negative 08/26/18 07:05 Discharge Exam - Head Exam Head Exam: ATRAUMATIC, NORMAL INSPECTION, NORMOCEPHALIC Discharge Plan - Discharge Medications Prescriptions: Doxycycline Hyclate 100 mg PO BID #20 capsule - Follow Up Plan Condition: STABLE Disposition: HOME/ ROUTINE Instructions: Cellulitis (DC), Abscess (GEN) Referrals: Joe Cole MD [Staff Provider] - Nora Kaplan MD [Staff Provider] - Lashay Morley MD [Staff Provider] - Yasir Darden MD [Staff Provider] -
--- NOTE | 2018-09-01 14:26 | CP.PCM.PN ---
Subjective - Date & Time of Evaluation Date of Evaluation: 09/01/18 Time of Evaluation: 14:22 - Subjective Subjective: Surgery Progress note- Dr. Katalina SHARP dressing changed w/ medi-honey and mepilex. Tolerating diet. Denies fevers, chills, chest pain, shortness of breath. Objective - Vital Signs/Intake and Output Vital Signs (last 24 hours): Temp Pulse Resp BP Pulse Ox 98.6 F 66 20 126/72 98 09/01/18 07:00 09/01/18 07:00 09/01/18 07:00 09/01/18 07:00 09/01/18 07:00 - Medications Medications: Current Medications Acetaminophen (Tylenol 325mg Tab) 650 mg PO Q6 PRN PRN Reason: Pain, Mild (1-3) Last Admin: 08/28/18 19:53 Dose: 650 mg Amlodipine Besylate (Norvasc) 10 mg PO DAILY [facility] Last Admin: 09/01/18 10:33 Dose: 10 mg Enoxaparin Sodium (Lovenox) 40 mg SC DAILY [facility]S [facility] Last Admin: 09/01/18 10:33 Dose: 40 mg Ibuprofen (Motrin Tab) 600 mg PO Q8H PRN PRN Reason: Pain, moderate (4-7) Last Admin: 08/30/18 21:33 Dose: 600 mg Ondansetron HCl (Zofran Inj) 4 mg IVP Q6H PRN PRN Reason: Nausea/Vomiting Potassium Chloride (K-Dur 20 Meq Er Tab) 20 meq PO DAILY [facility] Last Admin: 09/01/18 10:33 Dose: 20 meq Saliva Substitute (First Magic Mouthwash) 5 ml PO Q8 [facility] Last Admin: 09/01/18 13:11 Dose: Not Given - Labs Labs: 08/30/18 07:20 08/29/18 08:10 PT 13.9 SECONDS (9.7-12.2) H 08/26/18 07:05 INR 1.3 08/26/18 07:05 APTT 33.4 SECONDS (21-34) 08/26/18 07:05 - Constitutional Appears: Non-toxic, No Acute Distress - Head Exam Head Exam: ATRAUMATIC - Eye Exam Eye Exam: EOMI. absent: Scleral icterus - ENT Exam ENT Exam: Mucous Membranes Moist - Respiratory Exam Respiratory Exam: NORMAL BREATHING PATTERN. absent: Accessory Muscle Use, Respiratory Distress - Cardiovascular Exam Cardiovascular Exam: REGULAR RHYTHM. absent: Bradycardia, Tachycardia - GI/Abdominal Exam GI & Abdominal Exam: Soft. absent: Firm, Guarding, Rigid, Tenderness - Extremities Exam Additional comments: RUE distal to the elbow w/ medihoney Mepilex dressing applied at bedside - Neurological Exam Neurological Exam: Alert, Awake, Oriented x3 Assessment and Plan - Assessment and Plan (Free Text) Assessment: 68F s/p debridement and I&D of right forearm wound POD#5 Plan: continue local wound care dressing changes PRN Pain control PRN Abx as per ID cleared for discharge from surgical standpoint discussed w/ Dr. Darden Surgical attending Can follow up in wound clinic once per month PRN PGY2
== END 2018-09-01 14:25 | disposition home or self-care (01) | DRG 571 ==
LOC: C.ER 13:35 → C.9E 17:47 → C.5S 22:08
PROVIDERS: ADMIT Internal Medicine; ATTEND Internal Medicine
PROC: 0J9D0ZZ Drainage of Right Upper Arm Subcutaneous Tissue and Fascia, Open Approach (ICD-10-PCS; 2018-08-26)
PROC: 0JBD0ZZ Excision of Right Upper Arm Subcutaneous Tissue and Fascia, Open Approach (ICD-10-PCS; principal; 2018-08-26 17:00)
DX: L02.413 Cutaneous abscess of right upper limb (principal); C90.00 Multiple myeloma not having achieved remission; Z94.81 Bone marrow transplant status; Z94.84 Stem cells transplant status; L03.113 Cellulitis of right upper limb; I10 Essential (primary) hypertension; Z16.24 Resistance to multiple antibiotics; Z88.5 Allergy status to narcotic agent